=== PATIENT | female | born 1945 | race African-American/Black ===

== ENCOUNTER 2021-01-04 06:16 | Inpatient (IN) | payer OTHER ==
[2021-01-04 06:29] VITALS: BMI 25.0
[2021-01-04] MEDS ORDERED: DEXAMETHASONE SOD PHOSPHATE 10 MG/1 ML VIAL IVPUSH ONE (06:32)
[2021-01-04] MEDS ORDERED: NITROGLYCERIN SUBLINGUAL 1/150 0.4 MG TAB SL ONE (06:35)
[2021-01-04] MEDS ORDERED: ALBUTEROL SO4 2.5/IPRATROPIUM 0.5 INH SOL 3 ML VIAL.NEB. NEB SCH (06:45)
[2021-01-04 07:09] LABS: BASO % 0.7 % (0-2.0); EOS % 3.5 % (0-4.5); HEMATOCRIT 38.2 % (32.4-45.2); HEMOGLOBIN 12.8 GM/dL (10.7-15.3); LYMPH % 19.9 % (8-40); MCHC 33.6 g/dl (32.0-36.0); MEAN CELL VOLUME 89.3 fl (80-96); MONO % 7.7 % (3.8-10.2); NEUT % 68.2 % (42.8-82.8); PLATELET COUNT 339 K/MM3 (134-434); RBC 4.28 M/mm3 (3.60-5.2); RDW 15.1 % (11.6-15.6); WHITE BLOOD COUNT 10.6 K/mm3 (4.0-10.0)
[2021-01-04] MEDS ORDERED: dilTIAZem HCL 50 MG/10 ML - 10 ML VIAL IVPUSH ONE (07:21)
[2021-01-04 07:22] LABS: CHLORIDE 103 mmol/L (98-107); INR 1.37 (0.83-1.09); PROTHROMBIN TIME (PATIENT) 16.7 SEC (9.7-13.0); SODIUM 139 mmol/L (136-145)
[2021-01-04] MEDS ORDERED: dilTIAZem HCL 125 MG/25 ML - 25 ML VIAL ONE (07:22)
[2021-01-04 07:25] LABS: ACTIVATED PTT 29.9 SECONDS (25.2-36.5); ALBUMIN 3.8 g/dl (3.4-5.0); ANION GAP 6 MMOL/L (8-16); BLOOD UREA NITROGEN 18.4 mg/dL (7-18); CALCIUM 9.6 mg/dL (8.5-10.1); CO2 30 mmol/L (21-32); GLUCOSE,RANDOM 84 mg/dL (74-106); MAGNESIUM 1.8 mg/dL (1.8-2.4)
[2021-01-04 07:28] LABS: CREATININE 1.5 mg/dL (0.55-1.3); SGOT/AST 26 U/L (15-37); SGPT/ALT 27 U/L (13-61)
[2021-01-04 07:30] LABS: BILIRUBIN,TOTAL 0.4 mg/dL (0.2-1); TOT PROT 7.6 g/dl (6.4-8.2)
[2021-01-04 07:31] LABS: ALK PHOS 81 U/L (45-117)
[2021-01-04 07:33] LABS: N-TERMINAL BNP 2052.7 pg/ml (5-450)
[2021-01-04] MEDS ORDERED: FUROSEMIDE 40 MG/4 ML INJECTABLE VIAL IVPUSH ONE (08:18)
[2021-01-04] MEDS ORDERED: FUROSEMIDE 40 MG/4 ML INJECTABLE VIAL ONE (08:27)
[2021-01-04 10:30] LABS: EPI CELLS 26 /uL (0-25.1); HYALINE CASTS 2 /uL (0-3.1); PH,URINE 5.5 (5.0-8.0); URINE APPEARANCE CLEAR; URINE BACTERIA 120 /uL (0-1359); URINE BILIRUBIN NEGATIVE (NEGATIVE); URINE COLOR YELLOW; URINE GLUCOSE (UA) NEGATIVE (NEGATIVE); URINE KETONE NEGATIVE (NEGATIVE); URINE LEUK ESTERASE NEGATIVE (NEGATIVE); URINE NITRITE NEGATIVE (NEGATIVE); URINE PROTEIN 2+ (NEGATIVE); URINE RBC 6 /uL (0-23.9); URINE UROBILINOGEN 0.2 mg/dL (0.2-1.0); URINE WBC 22 /uL (0-25.8)
[2021-01-04] MEDS ORDERED: HEPARIN NA (PORCINE) 5,000 UNITS/ML 1ML VIAL SQ SCH (14:00)
[2021-01-04] MEDS: INSULIN SLIDING SCALE (NOVOLOG) 1 VIAL SQ SCH ×2 (17:23→22:56)
[2021-01-04] MEDS ORDERED: APIXABAN 5 MG TABLET PO SCH (22:41)
[2021-01-04] MEDS: MONTELUKAST NA 10 MG TABLET PO SCH (22:55)
[2021-01-04] MEDS: ATORVASTATIN CA 80 MG TABLET (FP) PO SCH (22:55)
[2021-01-04] MEDS: APIXABAN 5 MG TABLET PO SCH (22:56)
[2021-01-05] MEDS: APIXABAN 5 MG TABLET PO SCH ×3 (00:06→21:06)
[2021-01-05] MEDS: INSULIN SLIDING SCALE (NOVOLOG) 1 VIAL SQ SCH ×4 (06:47→21:15)
[2021-01-05 07:58] LABS: BASO % 0.4 % (0-2.0); EOS % 2.3 % (0-4.5); HEMATOCRIT 35.5 % (32.4-45.2); HEMOGLOBIN 11.8 GM/dL (10.7-15.3); LYMPH % 21.7 % (8-40); MCH 29.7 pg (25.7-33.7); MCHC 33.2 g/dl (32.0-36.0); MEAN CELL VOLUME 89.7 fl (80-96); MEAN PLT VOLUME 8.7 fl (7.5-11.1); NEUT % 64.6 % (42.8-82.8); PLATELET COUNT 271 K/MM3 (134-434); RBC 3.96 M/mm3 (3.60-5.2); RDW 14.9 % (11.6-15.6); WHITE BLOOD COUNT 8.3 K/mm3 (4.0-10.0)
[2021-01-05 08:25] LABS: ALBUMIN 3.6 g/dl (3.4-5.0); CALCIUM 9.6 mg/dL (8.5-10.1); MAGNESIUM 1.6 mg/dL (1.8-2.4)
[2021-01-05 08:29] LABS: BILIRUBIN,TOTAL 0.8 mg/dL (0.2-1); CREATININE 1.2 mg/dL (0.55-1.3); PHOSPHOROUS 2.6 mg/dL (2.5-4.9)
[2021-01-05 08:30] LABS: TOT PROT 6.8 g/dl (6.4-8.2)
[2021-01-05] MEDS ORDERED: PT OWN MED DRAWER 7, Y5N ONE (09:42)
[2021-01-05] MEDS ORDERED: APIXABAN 5 MG TABLET PO SCH (10:00)
[2021-01-05] MEDS ORDERED: ASPIRIN 81 MG CHEWABLE TABLETS PO SCH (10:00)
[2021-01-05] MEDS: FUROSEMIDE 40 MG/4 ML INJECTABLE VIAL IVPUSH SCH (10:15)
[2021-01-05] MEDS: TIOTROPIUM BROMIDE 2.5 MCG (SPIRIVA) RESPIMAT INHALER IH SCH (10:15)
[2021-01-05] MEDS ORDERED: INSULIN (NOVOLOG) ASPART 100 UNITS/ML 10ML VIAL ONE (17:17)
[2021-01-05] MEDS: MONTELUKAST NA 10 MG TABLET PO SCH (21:07)
[2021-01-05] MEDS: ATORVASTATIN CA 80 MG TABLET (FP) PO SCH (21:07)
[2021-01-06] MEDS: INSULIN SLIDING SCALE (NOVOLOG) 1 VIAL SQ SCH ×4 (06:04→21:37)
[2021-01-06 06:58] LABS: BASO % 0.5 % (0-2.0); EOS % 2.3 % (0-4.5); HEMATOCRIT 35.6 % (32.4-45.2); HEMOGLOBIN 11.5 GM/dL (10.7-15.3); MCH 29.1 pg (25.7-33.7); MCHC 32.3 g/dl (32.0-36.0); MEAN PLT VOLUME 8.5 fl (7.5-11.1); MONO % 11.5 % (3.8-10.2); NEUT % 66.7 % (42.8-82.8); PLATELET COUNT 265 K/MM3 (134-434); RBC 3.96 M/mm3 (3.60-5.2); WHITE BLOOD COUNT 7.3 K/mm3 (4.0-10.0)
[2021-01-06 07:53] LABS: CALCIUM 9.9 mg/dL (8.5-10.1)
[2021-01-06 07:54] LABS: BLOOD UREA NITROGEN 15.1 mg/dL (7-18)
[2021-01-06 07:55] LABS: MAGNESIUM 1.6 mg/dL (1.8-2.4)
[2021-01-06 07:57] LABS: CREATININE 1.2 mg/dL (0.55-1.3)
[2021-01-06 07:58] LABS: PHOSPHOROUS 2.5 mg/dL (2.5-4.9)
[2021-01-06] MEDS: APIXABAN 5 MG TABLET PO SCH ×2 (09:41→21:36)
[2021-01-06] MEDS: FUROSEMIDE 40 MG/4 ML INJECTABLE VIAL IVPUSH SCH (09:41)
[2021-01-06] MEDS: TIOTROPIUM BROMIDE 2.5 MCG (SPIRIVA) RESPIMAT INHALER IH SCH (09:53)
[2021-01-06] MEDS ORDERED: MAGNESIUM OXIDE 400 MG TABLET (FP) PO ONE (10:15)
[2021-01-06] MEDS: metoPROLOL SUCCINATE 25 MG TAB.SR.24H (FP) PO SCH (10:41)
[2021-01-06] MEDS ORDERED: LEVALBUTEROL HCL 0.31 MG/3 ML VIAL.NEB IH PRN (12:33)
[2021-01-06] MEDS ORDERED: FUROSEMIDE 40 MG/4 ML INJECTABLE VIAL IVPUSH ONE (16:00)
[2021-01-06] MEDS: ATORVASTATIN CA 80 MG TABLET (FP) PO SCH (21:36)
[2021-01-06] MEDS: MONTELUKAST NA 10 MG TABLET PO SCH (21:36)
[2021-01-07] MEDS: INSULIN SLIDING SCALE (NOVOLOG) 1 VIAL SQ SCH ×4 (06:07→21:32)
[2021-01-07 08:02] LABS: HEMATOCRIT 32.9 % (32.4-45.2); HEMOGLOBIN 11.2 GM/dL (10.7-15.3); MCH 30.2 pg (25.7-33.7); MCHC 34.1 g/dl (32.0-36.0); MEAN CELL VOLUME 88.6 fl (80-96); MEAN PLT VOLUME 8.7 fl (7.5-11.1); PLATELET COUNT 263 K/MM3 (134-434); RBC 3.71 M/mm3 (3.60-5.2); RDW 15.2 % (11.6-15.6)
[2021-01-07 08:21] LABS: CALCIUM 9.7 mg/dL (8.5-10.1)
[2021-01-07 08:22] LABS: BLOOD UREA NITROGEN 19.4 mg/dL (7-18); MAGNESIUM 1.7 mg/dL (1.8-2.4)
[2021-01-07 08:26] LABS: CREATININE 1.2 mg/dL (0.55-1.3); PHOSPHOROUS 2.8 mg/dL (2.5-4.9)
[2021-01-07] MEDS: metoPROLOL SUCCINATE 25 MG TAB.SR.24H (FP) PO SCH (09:22)
[2021-01-07] MEDS: APIXABAN 5 MG TABLET PO SCH ×2 (09:22→21:32)
[2021-01-07] MEDS: TIOTROPIUM BROMIDE 2.5 MCG (SPIRIVA) RESPIMAT INHALER IH SCH (09:22)
[2021-01-07] MEDS: FUROSEMIDE 40 MG/4 ML INJECTABLE VIAL IVPUSH SCH (09:22)
[2021-01-07] MEDS ORDERED: FUROSEMIDE 40 MG/4 ML INJECTABLE VIAL IVPUSH ONE (15:00)
[2021-01-07] MEDS ORDERED: INSULIN (NOVOLOG) ASPART 100 UNITS/ML 10ML VIAL ONE (20:31)
[2021-01-07] MEDS: ATORVASTATIN CA 80 MG TABLET (FP) PO SCH (21:31)
[2021-01-07] MEDS: MONTELUKAST NA 10 MG TABLET PO SCH (21:32)
[2021-01-08] MEDS: INSULIN SLIDING SCALE (NOVOLOG) 1 VIAL SQ SCH ×3 (06:34→17:08)
[2021-01-08 08:42] LABS: CALCIUM 10.1 mg/dL (8.5-10.1)
[2021-01-08 08:46] LABS: CREATININE 1.3 mg/dL (0.55-1.3)
[2021-01-08 08:48] LABS: BLOOD UREA NITROGEN 23.6 mg/dL (7-18)
[2021-01-08] MEDS ORDERED: FUROSEMIDE 40 MG TABLET (FP) PO SCH (10:00)
[2021-01-08] MEDS: metoPROLOL SUCCINATE 25 MG TAB.SR.24H (FP) PO SCH (10:40)
[2021-01-08] MEDS: TIOTROPIUM BROMIDE 2.5 MCG (SPIRIVA) RESPIMAT INHALER IH SCH (10:40)
[2021-01-08] MEDS: APIXABAN 5 MG TABLET PO SCH (10:40)
[2021-01-08 10:42] LABS: MAGNESIUM 1.6 mg/dL (1.8-2.4)
[2021-01-08] MEDS ORDERED: INSULIN (NOVOLOG) ASPART 100 UNITS/ML 10ML VIAL ONE (11:37)
[2021-01-08 18:27] VITALS: BP 139/71; PULSE 84; TEMP 97.9
== END 2021-01-08 18:42 | disposition home health service (06) | DRG 291 ==
LOC: JER 06:16 → JERBED 10:16 → J4W 11:18
PROVIDERS: ATTEND Internal Medicine
DX: I13.0 Hypertensive heart and chronic kidney disease with heart failure and stage 1 through stage 4 chronic kidney disease, or unspecified chronic kidney disease (principal); I50.33 Acute on chronic diastolic (congestive) heart failure; N17.9 Acute kidney failure, unspecified; D86.0 Sarcoidosis of lung; I48.91 Unspecified atrial fibrillation; E78.5 Hyperlipidemia, unspecified; I25.10 Atherosclerotic heart disease of native coronary artery without angina pectoris; Z95.5 Presence of coronary angioplasty implant and graft; E11.22 Type 2 diabetes mellitus with diabetic chronic kidney disease; N18.9 Chronic kidney disease, unspecified
CPT/HCPCS: 36415; 71045-TC-FY; 80048; 80053; 81003; 82550; 82553; 82962; 83036; 83735; 83880; 84100; 84436; 84443; 84484; 85025; 85027; 85610; 85730; 87086; 93005; 93010; 93306-TC; 94761; 97116-GP; 97162-GP; 99291; C9803; J1644; U0003; U0005

== ENCOUNTER 2022-01-16 20:07 | Inpatient (IN) | payer OTHER ==
[2022-01-16 20:40] VITALS: BMI 21.6
[2022-01-16 22:30] LABS: BASO % 0.8 % (0-2.0); EOS % 2.3 % (0-4.5); HEMATOCRIT 35.1 % (32.4-45.2); HEMOGLOBIN 11.6 GM/dL (10.7-15.3); LYMPH % 15.4 % (8-40); MCH 29.5 pg (25.7-33.7); MCHC 32.9 g/dl (32.0-36.0); MEAN CELL VOLUME 89.4 fl (80-96); MEAN PLT VOLUME 8.2 fl (7.5-11.1); MONO % 11.7 % (3.8-10.2); NEUT % 69.8 % (42.8-82.8); PLATELET COUNT 225 10^3/uL (134-434); RBC 3.93 M/mm3 (3.60-5.2); RDW 17.6 % (11.6-15.6); WHITE BLOOD COUNT 6.6 K/mm3 (4.0-10.0)
[2022-01-16 22:37] LABS: INR 1.95 (0.83-1.09); PROTHROMBIN TIME (PATIENT) 22.6 SEC (9.7-13.0)
[2022-01-16 22:39] LABS: ACTIVATED PTT 36.8 SECONDS (25.2-36.5)
[2022-01-16 22:55] LABS: ALBUMIN 3.6 g/dl (3.4-5.0); BLOOD UREA NITROGEN 26.4 mg/dL (7-18); CALCIUM 9.8 mg/dL (8.5-10.1)
[2022-01-16 22:57] LABS: CREATININE 1.5 mg/dL (0.55-1.3)
[2022-01-16 23:00] LABS: BILIRUBIN,TOTAL 1.1 mg/dL (0.2-1); TOT PROT 7.3 g/dl (6.4-8.2)
[2022-01-16 23:03] LABS: N-TERMINAL BNP 1558.4 pg/ml (5-450)
[2022-01-17 03:35] LABS: PH,URINE 5.5 (5.0-8.0); URINE APPEARANCE CLEAR; URINE BILIRUBIN NEGATIVE (NEGATIVE); URINE COLOR YELLOW; URINE GLUCOSE (UA) NEGATIVE (NEGATIVE); URINE KETONE NEGATIVE (NEGATIVE); URINE LEUK ESTERASE NEGATIVE (NEGATIVE); URINE NITRITE NEGATIVE (NEGATIVE); URINE PROTEIN TRACE (NEGATIVE)
[2022-01-17] MEDS ORDERED: FUROSEMIDE 40 MG/4 ML INJECTABLE VIAL ONE ×2 (04:46→13:27)
[2022-01-17] MEDS: FUROSEMIDE 40 MG/4 ML INJECTABLE VIAL IVPUSH SCH ×2 (05:08→13:35)
[2022-01-17 05:55] LABS: MAGNESIUM 1.8 mg/dL (1.8-2.4)
[2022-01-17 09:23] LABS: BASO % 0.6 % (0-2.0); EOS % 2.4 % (0-4.5); HEMATOCRIT 33.1 % (32.4-45.2); HEMOGLOBIN 10.8 GM/dL (10.7-15.3); LYMPH % 18.1 % (8-40); MCH 29.1 pg (25.7-33.7); MCHC 32.7 g/dl (32.0-36.0); MEAN CELL VOLUME 88.9 fl (80-96); NEUT % 66.9 % (42.8-82.8); PLATELET COUNT 222 10^3/uL (134-434); RBC 3.72 M/mm3 (3.60-5.2); RDW 17.7 % (11.6-15.6); WHITE BLOOD COUNT 5.6 K/mm3 (4.0-10.0)
[2022-01-17 09:51] LABS: PHOSPHOROUS 3.9 mg/dL (2.5-4.9)
[2022-01-17 09:54] LABS: ALBUMIN 3.3 g/dl (3.4-5.0); BILIRUBIN,TOTAL 0.8 mg/dL (0.2-1); BLOOD UREA NITROGEN 24.8 mg/dL (7-18); CALCIUM 9.9 mg/dL (8.5-10.1); TOT PROT 6.7 g/dl (6.4-8.2)
[2022-01-17 09:58] LABS: CREATININE 1.3 mg/dL (0.55-1.3)
[2022-01-17] MEDS ORDERED: ENOXAPARIN NA (PORCINE) 40 MG/0.4 ML DISP.SYRIN SQ SCH (10:00)
[2022-01-17] MEDS ORDERED: APIXABAN 5 MG TABLET ONE (13:26)
[2022-01-17] MEDS ORDERED: PANTOPRAZOLE 40 MG TABLET PO ONE (13:26)
[2022-01-17] MEDS ORDERED: metoPROLOL SUCCINATE 25 MG TAB.SR.24H (FP) PO ONE (13:28)
[2022-01-17] MEDS: metoPROLOL SUCCINATE 25 MG TAB.SR.24H (FP) PO SCH (13:35)
[2022-01-17] MEDS: TIOTROPIUM BROMIDE 2.5 MCG (SPIRIVA) RESPIMAT INHALER IH SCH (13:35)
[2022-01-17] MEDS: APIXABAN 5 MG TABLET PO SCH ×2 (13:35→21:16)
[2022-01-17] MEDS: PANTOPRAZOLE 40 MG TABLET PO SCH (13:35)
[2022-01-17] MEDS ORDERED: PATIENT'S OWN MEDICATION (NON-FORMULARY) (Brinzolamide/Brimonidine Tart [Simbrinza 1%-0.2% OU SCH (14:00)
[2022-01-17] MEDS: BRIMONIDINE TARTRATE 0.2% OPHTHALMIC 5 ML BOTTLE OU SCH ×3 (15:00→21:20)
[2022-01-17] MEDS: DORZOLAMIDE 2% HCL OPHTHALMIC SOLUTION 10 ML BOTTLE OU SCH ×2 (15:00→21:17)
[2022-01-17] MEDS: LIPASE/PROTEASE/AMYLASE 36,000 UNIT CAPSULE PO SCH (17:52)
[2022-01-17] MEDS: MONTELUKAST NA 10 MG TABLET PO SCH (21:16)
[2022-01-17] MEDS: ATORVASTATIN CA 80 MG TABLET (FP) PO SCH (21:16)
[2022-01-17] MEDS: MIRTAZAPINE 15 MG TABLET (FP) PO SCH (21:16)
[2022-01-18] MEDS: BRIMONIDINE TARTRATE 0.2% OPHTHALMIC 5 ML BOTTLE OU SCH ×3 (05:09→21:19)
[2022-01-18] MEDS: DORZOLAMIDE 2% HCL OPHTHALMIC SOLUTION 10 ML BOTTLE OU SCH ×3 (05:09→21:08)
[2022-01-18] MEDS: LIPASE/PROTEASE/AMYLASE 36,000 UNIT CAPSULE PO SCH ×3 (08:09→16:53)
[2022-01-18] MEDS: APIXABAN 5 MG TABLET PO SCH ×2 (09:59→21:04)
[2022-01-18] MEDS: FUROSEMIDE 40 MG/4 ML INJECTABLE VIAL IVPUSH SCH (09:59)
[2022-01-18] MEDS: PANTOPRAZOLE 40 MG TABLET PO SCH (09:59)
[2022-01-18] MEDS: metoPROLOL SUCCINATE 25 MG TAB.SR.24H (FP) PO SCH (09:59)
[2022-01-18 10:59] LABS: HEMATOCRIT 35.7 % (32.4-45.2); HEMOGLOBIN 11.6 GM/dL (10.7-15.3); MCH 29.2 pg (25.7-33.7); MCHC 32.6 g/dl (32.0-36.0); MEAN CELL VOLUME 89.6 fl (80-96); MEAN PLT VOLUME 9.3 fl (7.5-11.1); PLATELET COUNT 224 10^3/uL (134-434); RBC 3.98 M/mm3 (3.60-5.2); RDW 17.9 % (11.6-15.6); WHITE BLOOD COUNT 5.3 K/mm3 (4.0-10.0)
[2022-01-18 11:00] LABS: INR 2.07 (0.83-1.09)
[2022-01-18] MEDS: INSULIN SLIDING SCALE (NOVOLOG) 1 VIAL SQ SCH ×3 (11:17→21:22)
[2022-01-18 11:18] LABS: CALCIUM 10.3 mg/dL (8.5-10.1)
[2022-01-18 11:19] LABS: ALBUMIN 3.6 g/dl (3.4-5.0)
[2022-01-18 11:22] LABS: CREATININE 1.2 mg/dL (0.55-1.3); PHOSPHOROUS 2.6 mg/dL (2.5-4.9)
[2022-01-18 11:23] LABS: BILIRUBIN,TOTAL 1.5 mg/dL (0.2-1); TOT PROT 7.3 g/dl (6.4-8.2)
[2022-01-18] MEDS: TIOTROPIUM BROMIDE 2.5 MCG (SPIRIVA) RESPIMAT INHALER IH SCH ×2 (13:04→13:06)
[2022-01-18] MEDS: MONTELUKAST NA 10 MG TABLET PO SCH (21:04)
[2022-01-18] MEDS: MIRTAZAPINE 15 MG TABLET (FP) PO SCH (21:04)
[2022-01-18] MEDS: ATORVASTATIN CA 80 MG TABLET (FP) PO SCH (21:04)
[2022-01-19] MEDS: DORZOLAMIDE 2% HCL OPHTHALMIC SOLUTION 10 ML BOTTLE OU SCH ×3 (06:06→21:21)
[2022-01-19] MEDS: BRIMONIDINE TARTRATE 0.2% OPHTHALMIC 5 ML BOTTLE OU SCH ×3 (06:06→21:21)
[2022-01-19] MEDS: INSULIN SLIDING SCALE (NOVOLOG) 1 VIAL SQ SCH ×4 (06:10→21:14)
[2022-01-19] MEDS ORDERED: INSULIN (NOVOLOG) ASPART 100 UNITS/ML 10ML VIAL ONE ×3 (07:03→20:40)
[2022-01-19] MEDS ORDERED: INSULIN (LEVEMIR) 100 UNITS/ML UNITS SQ ONE (07:03)
[2022-01-19 08:52] LABS: HEMATOCRIT 34.1 % (32.4-45.2); HEMOGLOBIN 11.4 GM/dL (10.7-15.3); MCH 29.6 pg (25.7-33.7); MCHC 33.5 g/dl (32.0-36.0); MEAN CELL VOLUME 88.4 fl (80-96); MEAN PLT VOLUME 8.7 fl (7.5-11.1); PLATELET COUNT 224 10^3/uL (134-434); RBC 3.86 M/mm3 (3.60-5.2); RDW 17.6 % (11.6-15.6); WHITE BLOOD COUNT 5.6 K/mm3 (4.0-10.0)
[2022-01-19] MEDS: LIPASE/PROTEASE/AMYLASE 36,000 UNIT CAPSULE PO SCH ×3 (08:59→17:09)
[2022-01-19 09:16] LABS: CALCIUM 10.2 mg/dL (8.5-10.1)
[2022-01-19 09:17] LABS: ALBUMIN 3.2 g/dl (3.4-5.0); BLOOD UREA NITROGEN 20.2 mg/dL (7-18)
[2022-01-19 09:18] LABS: BILIRUBIN,TOTAL 1.1 mg/dL (0.2-1); PHOSPHOROUS 3.1 mg/dL (2.5-4.9)
[2022-01-19 09:19] LABS: MAGNESIUM 1.9 mg/dL (1.8-2.4); TOT PROT 6.9 g/dl (6.4-8.2)
[2022-01-19 09:21] LABS: CREATININE 1.2 mg/dL (0.55-1.3)
[2022-01-19] MEDS: metoPROLOL SUCCINATE 25 MG TAB.SR.24H (FP) PO SCH (09:40)
[2022-01-19] MEDS: PANTOPRAZOLE 40 MG TABLET PO SCH (09:40)
[2022-01-19] MEDS: APIXABAN 5 MG TABLET PO SCH ×2 (09:40→21:11)
[2022-01-19] MEDS: TIOTROPIUM BROMIDE 2.5 MCG (SPIRIVA) RESPIMAT INHALER IH SCH (09:40)
[2022-01-19] MEDS: FUROSEMIDE 40 MG/4 ML INJECTABLE VIAL IVPUSH SCH (09:40)
[2022-01-19] MEDS: ATORVASTATIN CA 80 MG TABLET (FP) PO SCH (21:11)
[2022-01-19] MEDS: MIRTAZAPINE 15 MG TABLET (FP) PO SCH (21:12)
[2022-01-19] MEDS: MONTELUKAST NA 10 MG TABLET PO SCH (21:12)
[2022-01-20] MEDS: BRIMONIDINE TARTRATE 0.2% OPHTHALMIC 5 ML BOTTLE OU SCH ×3 (05:52→21:31)
[2022-01-20] MEDS: DORZOLAMIDE 2% HCL OPHTHALMIC SOLUTION 10 ML BOTTLE OU SCH ×3 (05:52→21:32)
[2022-01-20] MEDS: INSULIN SLIDING SCALE (NOVOLOG) 1 VIAL SQ SCH ×4 (06:25→21:37)
[2022-01-20] MEDS ORDERED: INSULIN (NOVOLOG) ASPART 100 UNITS/ML 10ML VIAL ONE ×2 (06:33→21:33)
[2022-01-20] MEDS: APIXABAN 5 MG TABLET PO SCH ×2 (09:21→21:31)
[2022-01-20] MEDS: PANTOPRAZOLE 40 MG TABLET PO SCH (09:21)
[2022-01-20] MEDS: metoPROLOL SUCCINATE 25 MG TAB.SR.24H (FP) PO SCH (09:21)
[2022-01-20] MEDS: LIPASE/PROTEASE/AMYLASE 36,000 UNIT CAPSULE PO SCH ×3 (09:21→17:05)
[2022-01-20] MEDS: FUROSEMIDE 40 MG/4 ML INJECTABLE VIAL IVPUSH SCH (09:21)
[2022-01-20] MEDS: TIOTROPIUM BROMIDE 2.5 MCG (SPIRIVA) RESPIMAT INHALER IH SCH (09:30)
[2022-01-20 09:36] LABS: BLOOD UREA NITROGEN 21.8 mg/dL (7-18); CALCIUM 10.1 mg/dL (8.5-10.1); MAGNESIUM 1.9 mg/dL (1.8-2.4)
[2022-01-20 09:39] LABS: CREATININE 1.1 mg/dL (0.55-1.3)
[2022-01-20 09:44] LABS: N-TERMINAL BNP 1660.8 pg/ml (5-450)
[2022-01-20] MEDS ORDERED: POTASSIUM CHLORIDE TABS 20 MEQ TABLET.ER (FP) PO ONE ×2 (17:41→21:30)
[2022-01-20 18:12] LABS: PHOSPHOROUS 2.9 mg/dL (2.5-4.9)
[2022-01-20] MEDS: MIRTAZAPINE 15 MG TABLET (FP) PO SCH (21:31)
[2022-01-20] MEDS: ATORVASTATIN CA 80 MG TABLET (FP) PO SCH (21:31)
[2022-01-20] MEDS: MONTELUKAST NA 10 MG TABLET PO SCH (21:31)
[2022-01-21] MEDS: BRIMONIDINE TARTRATE 0.2% OPHTHALMIC 5 ML BOTTLE OU SCH ×3 (05:24→22:03)
[2022-01-21] MEDS: DORZOLAMIDE 2% HCL OPHTHALMIC SOLUTION 10 ML BOTTLE OU SCH ×3 (05:24→22:03)
[2022-01-21] MEDS: INSULIN SLIDING SCALE (NOVOLOG) 1 VIAL SQ SCH ×4 (06:01→22:08)
[2022-01-21] MEDS: LIPASE/PROTEASE/AMYLASE 36,000 UNIT CAPSULE PO SCH ×3 (07:59→16:55)
[2022-01-21] MEDS: FUROSEMIDE 40 MG/4 ML INJECTABLE VIAL IVPUSH SCH (10:07)
[2022-01-21] MEDS: POLYETHYLENE GLYCOL (HEALTHYLAX) 3350 17 GM PACKET PO SCH (10:08)
[2022-01-21] MEDS: APIXABAN 5 MG TABLET PO SCH ×2 (10:08→22:03)
[2022-01-21] MEDS: metoPROLOL SUCCINATE 25 MG TAB.SR.24H (FP) PO SCH (10:08)
[2022-01-21] MEDS: PANTOPRAZOLE 40 MG TABLET PO SCH (10:08)
[2022-01-21] MEDS: TIOTROPIUM BROMIDE 2.5 MCG (SPIRIVA) RESPIMAT INHALER IH SCH (11:33)
[2022-01-21 12:09] LABS: HEMATOCRIT 36.2 % (32.4-45.2); HEMOGLOBIN 11.9 GM/dL (10.7-15.3); MCH 29.3 pg (25.7-33.7); MEAN CELL VOLUME 88.8 fl (80-96); PLATELET COUNT 233 10^3/uL (134-434); RBC 4.07 M/mm3 (3.60-5.2); RDW 17.5 % (11.6-15.6); WHITE BLOOD COUNT 5.1 K/mm3 (4.0-10.0)
[2022-01-21 12:23] LABS: CALCIUM 10.2 mg/dL (8.5-10.1)
[2022-01-21 12:24] LABS: ALBUMIN 3.4 g/dl (3.4-5.0)
[2022-01-21 12:27] LABS: CREATININE 1.1 mg/dL (0.55-1.3); PHOSPHOROUS 2.8 mg/dL (2.5-4.9)
[2022-01-21 12:28] LABS: BILIRUBIN,TOTAL 1.2 mg/dL (0.2-1); TOT PROT 7.2 g/dl (6.4-8.2)
[2022-01-21] MEDS: MIRTAZAPINE 15 MG TABLET (FP) PO SCH (22:03)
[2022-01-21] MEDS: MONTELUKAST NA 10 MG TABLET PO SCH (22:03)
[2022-01-21] MEDS: ATORVASTATIN CA 80 MG TABLET (FP) PO SCH (22:03)
[2022-01-22] MEDS: BRIMONIDINE TARTRATE 0.2% OPHTHALMIC 5 ML BOTTLE OU SCH ×2 (06:08→13:29)
[2022-01-22] MEDS: DORZOLAMIDE 2% HCL OPHTHALMIC SOLUTION 10 ML BOTTLE OU SCH ×2 (06:08→13:30)
[2022-01-22] MEDS: INSULIN SLIDING SCALE (NOVOLOG) 1 VIAL SQ SCH ×3 (06:11→16:41)
[2022-01-22] MEDS: LIPASE/PROTEASE/AMYLASE 36,000 UNIT CAPSULE PO SCH ×2 (08:24→11:50)
[2022-01-22] MEDS: PANTOPRAZOLE 40 MG TABLET PO SCH (09:16)
[2022-01-22] MEDS: APIXABAN 5 MG TABLET PO SCH (09:16)
[2022-01-22] MEDS: metoPROLOL SUCCINATE 25 MG TAB.SR.24H (FP) PO SCH (09:16)
[2022-01-22] MEDS: TIOTROPIUM BROMIDE 2.5 MCG (SPIRIVA) RESPIMAT INHALER IH SCH (09:17)
[2022-01-22] MEDS: POLYETHYLENE GLYCOL (HEALTHYLAX) 3350 17 GM PACKET PO SCH (09:17)
[2022-01-22] MEDS ORDERED: TORSEMIDE 20 MG TABLET (FP) PO SCH (10:00)
[2022-01-22 11:12] LABS: CALCIUM 10.3 mg/dL (8.5-10.1)
[2022-01-22 11:13] LABS: BLOOD UREA NITROGEN 20.4 mg/dL (7-18)
[2022-01-22 11:16] LABS: PHOSPHOROUS 3.1 mg/dL (2.5-4.9)
[2022-01-22 15:21] VITALS: BP 131/73; PULSE 70; TEMP 97.5
== END 2022-01-22 17:08 | disposition home or self-care (01) | DRG 291 ==
LOC: JER 20:07 → JERBED 01-17 01:21 → J6S 01-17 14:10
PROVIDERS: ADMIT Internal Medicine; ATTEND Internal Medicine
DX: I13.0 Hypertensive heart and chronic kidney disease with heart failure and stage 1 through stage 4 chronic kidney disease, or unspecified chronic kidney disease (principal); I50.33 Acute on chronic diastolic (congestive) heart failure; N17.9 Acute kidney failure, unspecified; I48.91 Unspecified atrial fibrillation; E78.5 Hyperlipidemia, unspecified; D86.0 Sarcoidosis of lung; I25.10 Atherosclerotic heart disease of native coronary artery without angina pectoris; N18.9 Chronic kidney disease, unspecified; Z98.61 Coronary angioplasty status
CPT/HCPCS: 36415; 71045-TC-FY; 76775-TC; 80048; 80053; 81003; 82550; 82962; 83036; 83735; 83880; 84100; 84484; 85025; 85027; 85610; 85730; 93005; 93010; 93306-TC; 93970-TC; 94761; 97116-GP; 97161-GP; 99285-25; C9803-CS; U0003; U0005

== ENCOUNTER 2022-04-30 10:27 | Inpatient (IN) | payer OTHER ==
[2022-04-30] MEDS ORDERED: DEXTROSE 50%-WATER - 25 GM/50 ML VIAL IVPUSH ONE (10:57)
[2022-04-30] MEDS ORDERED: DEXTROSE 50%-WATER 25 GM/50 ML DISP.SYRIN ONE ×2 (10:58→11:00)
[2022-04-30 12:25] LABS: BASO % 0.1 % (0-2.0); EOS % 0.1 % (0-4.5); HEMATOCRIT 30.3 % (32.4-45.2); HEMOGLOBIN 9.8 GM/dL (10.7-15.3); LYMPH % 11.7 % (8-40); MCH 25.8 pg (25.7-33.7); MCHC 32.3 g/dl (32.0-36.0); MEAN CELL VOLUME 79.9 fl (80-96); MEAN PLT VOLUME 8.4 fl (7.5-11.1); MONO % 8.2 % (3.8-10.2); NEUT % 79.9 % (42.8-82.8); PLATELET COUNT 307 10^3/uL (134-434); RBC 3.79 M/mm3 (3.60-5.2); RDW 17.7 % (11.6-15.6); WHITE BLOOD COUNT 7.6 K/mm3 (4.0-10.0)
[2022-04-30 12:56] LABS: CALCIUM 10.6 mg/dL (8.5-10.1)
[2022-04-30 12:58] LABS: ALBUMIN 3.7 g/dl (3.4-5.0)
[2022-04-30 12:59] LABS: CREATININE 1.9 mg/dL (0.55-1.3)
[2022-04-30 13:01] LABS: BILIRUBIN,TOTAL 1.1 mg/dL (0.2-1); TOT PROT 7.9 g/dl (6.4-8.2)
[2022-04-30 15:33] LABS: EPI CELLS 22 /uL (0-25.1); HYALINE CASTS 1 /uL (0-3.1); PH,URINE 5.5 (5.0-8.0); URINE APPEARANCE CLEAR; URINE BACTERIA 102 /uL (0-1359); URINE BILIRUBIN NEGATIVE (NEGATIVE); URINE COLOR YELLOW; URINE GLUCOSE (UA) NEGATIVE (NEGATIVE); URINE KETONE NEGATIVE (NEGATIVE); URINE LEUK ESTERASE NEGATIVE (NEGATIVE); URINE NITRITE NEGATIVE (NEGATIVE); URINE PROTEIN 1+ (NEGATIVE); URINE RBC 2 /uL (0-23.9); URINE WBC 16 /uL (0-25.8)
[2022-04-30] MEDS ORDERED: ACETAMINOPHEN 325 MG TABLET (FP) PO PRN (18:37)
[2022-04-30] MEDS ORDERED: LACTATED RINGERS SOLUTION 1,000 ML/1,000 ML INFUS.BAG IV SCH (19:15)
[2022-04-30] MEDS ORDERED: MONTELUKAST NA 10 MG TABLET PO SCH (22:00)
[2022-04-30] MEDS ORDERED: ATORVASTATIN CA 80 MG TABLET (FP) PO SCH (22:00)
[2022-04-30] MEDS ORDERED: HEPARIN NA (PORCINE) 5,000 UNITS/ML 1ML VIAL SQ SCH (22:00)
[2022-05-01] MEDS: APIXABAN 5 MG TABLET PO SCH ×3 (00:25→21:58)
[2022-05-01] MEDS: INSULIN SLIDING SCALE (NOVOLOG) 1 VIAL SQ SCH ×5 (00:32→21:58)
[2022-05-01] MEDS ORDERED: ENALAPRIL MALEATE 10 MG TABLET PO SCH (10:00)
[2022-05-01] MEDS ORDERED: TORSEMIDE 20 MG TABLET (FP) PO SCH (10:00)
[2022-05-01] MEDS: metoPROLOL SUCCINATE 25 MG TAB.SR.24H (FP) PO SCH ×2 (10:15→10:33)
[2022-05-01 11:36] LABS: HEMATOCRIT 27.9 % (32.4-45.2); HEMOGLOBIN 8.9 GM/dL (10.7-15.3); MCH 25.6 pg (25.7-33.7); MEAN PLT VOLUME 8.6 fl (7.5-11.1); PLATELET COUNT 257 10^3/uL (134-434); RBC 3.49 M/mm3 (3.60-5.2); RDW 17.6 % (11.6-15.6); WHITE BLOOD COUNT 6.9 K/mm3 (4.0-10.0)
[2022-05-01 12:09] LABS: BLOOD UREA NITROGEN 30.3 mg/dL (7-18); CALCIUM 10.2 mg/dL (8.5-10.1)
[2022-05-01 12:12] LABS: CREATININE 1.7 mg/dL (0.55-1.3)
[2022-05-01] MEDS ORDERED: ACETAMINOPHEN 325 MG TABLET (FP) PO PRN (14:57)
[2022-05-01] MEDS: ATORVASTATIN CA 80 MG TABLET (FP) PO SCH (21:58)
[2022-05-01] MEDS: MONTELUKAST NA 10 MG TABLET PO SCH (21:58)
[2022-05-02] MEDS: INSULIN SLIDING SCALE (NOVOLOG) 1 VIAL SQ SCH ×4 (06:16→22:01)
[2022-05-02] MEDS ORDERED: TORSEMIDE 20 MG TABLET (FP) PO SCH (10:00)
[2022-05-02] MEDS ORDERED: ENALAPRIL MALEATE 10 MG TABLET PO SCH ×2 (10:00→12:09)
[2022-05-02] MEDS: APIXABAN 5 MG TABLET PO SCH ×2 (11:10→22:01)
[2022-05-02 14:45] LABS: BASO % 0.8 % (0-2.0); EOS % 0.6 % (0-4.5); HEMATOCRIT 27.7 % (32.4-45.2); HEMOGLOBIN 9.1 GM/dL (10.7-15.3); LYMPH % 13.5 % (8-40); MCHC 32.8 g/dl (32.0-36.0); MEAN CELL VOLUME 79.1 fl (80-96); MEAN PLT VOLUME 8.4 fl (7.5-11.1); MONO % 15.3 % (3.8-10.2); NEUT % 69.8 % (42.8-82.8); PLATELET COUNT 255 10^3/uL (134-434); RDW 17.6 % (11.6-15.6); WHITE BLOOD COUNT 6.7 K/mm3 (4.0-10.0)
[2022-05-02 15:10] LABS: BLOOD UREA NITROGEN 28.8 mg/dL (7-18); CALCIUM 10.5 mg/dL (8.5-10.1); MAGNESIUM 2.1 mg/dL (1.8-2.4)
[2022-05-02 15:11] LABS: ALBUMIN 3.2 g/dl (3.4-5.0)
[2022-05-02 15:13] LABS: CREATININE 1.7 mg/dL (0.55-1.3); PHOSPHOROUS 2.7 mg/dL (2.5-4.9)
[2022-05-02 15:15] LABS: BILIRUBIN,TOTAL 1.1 mg/dL (0.2-1); TOT PROT 6.8 g/dl (6.4-8.2)
[2022-05-02] MEDS ORDERED: FLUTICASONE/UMECLIDIN/VILANTER(200-62.5-25 TRELEGY ELLIPTA) INAHLER IH SCH (21:30)
[2022-05-02] MEDS ORDERED: BUDESONIDE/FORMETEROL FUMARATE 160/4.5 mcg INHALER IH ONE (21:35)
[2022-05-02] MEDS ORDERED: BUDESONIDE/FORMETEROL FUMARATE 160/4.5 mcg INHALER IH SCH (22:00)
[2022-05-02] MEDS: ATORVASTATIN CA 80 MG TABLET (FP) PO SCH (22:01)
[2022-05-02] MEDS: MONTELUKAST NA 10 MG TABLET PO SCH (22:01)
[2022-05-03] MEDS: INSULIN SLIDING SCALE (NOVOLOG) 1 VIAL SQ SCH ×4 (06:31→22:04)
[2022-05-03 08:13] LABS: EPI CELLS 11 /uL (0-25.1); HYALINE CASTS 2 /uL (0-3.1); URINE APPEARANCE CLEAR; URINE BACTERIA 6 /uL (0-1359); URINE BILIRUBIN NEGATIVE (NEGATIVE); URINE COLOR YELLOW; URINE GLUCOSE (UA) NEGATIVE (NEGATIVE); URINE KETONE NEGATIVE (NEGATIVE); URINE LEUK ESTERASE NEGATIVE (NEGATIVE); URINE NITRITE NEGATIVE (NEGATIVE); URINE PROTEIN 1+ (NEGATIVE); URINE RBC 4 /uL (0-23.9); URINE WBC 6 /uL (0-25.8)
[2022-05-03 08:36] LABS: BASO % 0.3 % (0-2.0); HEMATOCRIT 31.2 % (32.4-45.2); HEMOGLOBIN 9.7 GM/dL (10.7-15.3); LYMPH % 23.5 % (8-40); MCH 24.7 pg (25.7-33.7); MEAN CELL VOLUME 79.7 fl (80-96); MEAN PLT VOLUME 9.1 fl (7.5-11.1); MONO % 12.5 % (3.8-10.2); NEUT % 62.7 % (42.8-82.8); PLATELET COUNT 290 10^3/uL (134-434); RBC 3.91 M/mm3 (3.60-5.2); RDW 17.6 % (11.6-15.6); WHITE BLOOD COUNT 7.8 K/mm3 (4.0-10.0)
[2022-05-03 09:01] LABS: BLOOD UREA NITROGEN 34.2 mg/dL (7-18); CALCIUM 10.6 mg/dL (8.5-10.1); MAGNESIUM 2.1 mg/dL (1.8-2.4)
[2022-05-03 09:04] LABS: CREATININE 1.9 mg/dL (0.55-1.3); PHOSPHOROUS 2.9 mg/dL (2.5-4.9)
[2022-05-03 09:06] LABS: BILIRUBIN,TOTAL 1.1 mg/dL (0.2-1); TOT PROT 7.3 g/dl (6.4-8.2)
[2022-05-03 09:09] LABS: ALBUMIN 3.8 g/dl (3.4-5.0)
[2022-05-03] MEDS: APIXABAN 5 MG TABLET PO SCH ×2 (09:17→22:05)
[2022-05-03] MEDS ORDERED: MAGNESIUM SULF 50% (8.12 MEQ/2 ML-1 GM VIAL) IVPB ONE (10:36)
[2022-05-03] MEDS ORDERED: POTASSIUM CHLORIDE ORAL LIQUID 20 MEQ/15 ML PO ONE (10:36)
[2022-05-03 11:58] LABS: BILIRUBIN,DIRECT 0.6 mg/dL (0.0-0.2)
[2022-05-03] MEDS ORDERED: SODIUM CHLORIDE 1,000 ML IV SCH (16:00)
[2022-05-03 16:19] LABS: ARTERIAL BLD GAS O2 SATURATION 87.3 % (95-98); ARTERIAL BLOOD GAS BASE EXCESS 8.4 mmol/L (-2-2); ARTERIAL BLOOD GAS PO2 49.3 mmHg (80-100); ARTERIAL BLOOD GAS pH 7.482 (7.350-7.450)
[2022-05-03 16:21] LABS: ALLENS TEST POSITIVE
[2022-05-03] MEDS: MONTELUKAST NA 10 MG TABLET PO SCH (22:05)
[2022-05-03] MEDS: ATORVASTATIN CA 80 MG TABLET (FP) PO SCH (22:05)
[2022-05-04] MEDS ORDERED: PROCHLORPERAZINE INJECTION 10 MG/2 ML VIAL IVPB PRN (04:02)
[2022-05-04] MEDS: INSULIN SLIDING SCALE (NOVOLOG) 1 VIAL SQ SCH ×4 (06:14→21:53)
[2022-05-04 07:50] LABS: HEMATOCRIT 28.6 % (32.4-45.2); MCH 25.1 pg (25.7-33.7); MCHC 31.5 g/dl (32.0-36.0); MEAN CELL VOLUME 79.8 fl (80-96); MEAN PLT VOLUME 9.3 fl (7.5-11.1); PLATELET COUNT 246 10^3/uL (134-434); RBC 3.59 M/mm3 (3.60-5.2); RDW 17.9 % (11.6-15.6); WHITE BLOOD COUNT 7.8 K/mm3 (4.0-10.0)
[2022-05-04 08:15] LABS: BLOOD UREA NITROGEN 42.8 mg/dL (7-18)
[2022-05-04 08:16] LABS: ALBUMIN 3.2 g/dl (3.4-5.0); BILIRUBIN,TOTAL 1.2 mg/dL (0.2-1); CALCIUM 10.3 mg/dL (8.5-10.1); MAGNESIUM 2.5 mg/dL (1.8-2.4); TOT PROT 6.7 g/dl (6.4-8.2)
[2022-05-04 08:18] LABS: PHOSPHOROUS 3.3 mg/dL (2.5-4.9)
[2022-05-04] MEDS: APIXABAN 5 MG TABLET PO SCH ×2 (09:23→21:39)
[2022-05-04] MEDS ORDERED: FLUTICASONE/UMECLIDIN/VILANTER(200-62.5-25 TRELEGY ELLIPTA) INAHLER IH SCH (14:00)
[2022-05-04] MEDS: TIOTROPIUM BROMIDE 2.5 MCG (SPIRIVA) RESPIMAT INHALER IH SCH (14:08)
[2022-05-04] MEDS: methylPREDNISolone NA SUCC 40 MG/1 ML VIAL IVPUSH SCH ×2 (16:45→21:40)
[2022-05-04] MEDS: MONTELUKAST NA 10 MG TABLET PO SCH (21:40)
[2022-05-04] MEDS: ATORVASTATIN CA 80 MG TABLET (FP) PO SCH (21:40)
[2022-05-04] MEDS: BUDESONIDE/FORMETEROL FUMARATE 160/4.5 mcg INHALER IH SCH (21:53)
[2022-05-05] MEDS: INSULIN SLIDING SCALE (NOVOLOG) 1 VIAL SQ SCH ×4 (06:04→21:47)
[2022-05-05] MEDS: APIXABAN 5 MG TABLET PO SCH ×2 (10:15→21:38)
[2022-05-05] MEDS: BUDESONIDE/FORMETEROL FUMARATE 160/4.5 mcg INHALER IH SCH ×2 (10:15→21:39)
[2022-05-05] MEDS: TIOTROPIUM BROMIDE 2.5 MCG (SPIRIVA) RESPIMAT INHALER IH SCH (10:15)
[2022-05-05] MEDS: methylPREDNISolone NA SUCC 40 MG/1 ML VIAL IVPUSH SCH ×2 (10:15→21:38)
[2022-05-05] MEDS: ATORVASTATIN CA 80 MG TABLET (FP) PO SCH (21:38)
[2022-05-05] MEDS: MONTELUKAST NA 10 MG TABLET PO SCH (21:38)
[2022-05-06] MEDS: INSULIN SLIDING SCALE (NOVOLOG) 1 VIAL SQ SCH ×5 (06:45→23:11)
[2022-05-06 08:11] LABS: CALCIUM 10.4 mg/dL (8.5-10.1)
[2022-05-06 08:13] LABS: CREATININE 3.1 mg/dL (0.55-1.3)
[2022-05-06] MEDS: APIXABAN 5 MG TABLET PO SCH ×2 (09:32→22:55)
[2022-05-06] MEDS: methylPREDNISolone NA SUCC 40 MG/1 ML VIAL IVPUSH SCH ×2 (09:33→22:56)
[2022-05-06] MEDS: BUDESONIDE/FORMETEROL FUMARATE 160/4.5 mcg INHALER IH SCH ×2 (09:35→23:05)
[2022-05-06] MEDS: TIOTROPIUM BROMIDE 2.5 MCG (SPIRIVA) RESPIMAT INHALER IH SCH (09:36)
[2022-05-06] MEDS: INSULIN (LEVEMIR) 100 UNITS/ML UNITS SQ SCH ×2 (09:44→22:55)
[2022-05-06] MEDS ORDERED: INSULIN (LEVEMIR) 100 UNITS/ML UNITS SQ SCH (10:00)
[2022-05-06] MEDS: SODIUM CHLORIDE 0.45% 1,000 ML IV SCH (14:24)
[2022-05-06] MEDS ORDERED: ACETAMINOPHEN 325 MG TABLET (FP) PO PRN (20:09)
[2022-05-06] MEDS ORDERED: INSULIN (LEVEMIR) 100 UNITS/ML UNITS SQ ONE (20:52)
[2022-05-06] MEDS: ATORVASTATIN CA 80 MG TABLET (FP) PO SCH (22:55)
[2022-05-06] MEDS: MONTELUKAST NA 10 MG TABLET PO SCH (22:56)
[2022-05-07] MEDS: SODIUM CHLORIDE 0.45% 1,000 ML IV SCH (06:00)
[2022-05-07] MEDS: INSULIN (LEVEMIR) 100 UNITS/ML UNITS SQ SCH ×2 (06:01→21:36)
[2022-05-07] MEDS: INSULIN SLIDING SCALE (NOVOLOG) 1 VIAL SQ SCH ×4 (06:12→21:36)
[2022-05-07 09:56] LABS: HEMATOCRIT 29.9 % (32.4-45.2); HEMOGLOBIN 9.4 GM/dL (10.7-15.3); MCH 25.1 pg (25.7-33.7); MCHC 31.6 g/dl (32.0-36.0); MEAN CELL VOLUME 79.6 fl (80-96); MEAN PLT VOLUME 9.6 fl (7.5-11.1); PLATELET COUNT 216 10^3/uL (134-434); RBC 3.75 M/mm3 (3.60-5.2); RDW 18.2 % (11.6-15.6); WHITE BLOOD COUNT 12.5 K/mm3 (4.0-10.0)
[2022-05-07] MEDS: methylPREDNISolone NA SUCC 40 MG/1 ML VIAL IVPUSH SCH ×2 (10:18→21:28)
[2022-05-07] MEDS: BUDESONIDE/FORMETEROL FUMARATE 160/4.5 mcg INHALER IH SCH ×2 (10:21→21:37)
[2022-05-07] MEDS: APIXABAN 5 MG TABLET PO SCH ×2 (10:21→21:29)
[2022-05-07 10:38] LABS: CALCIUM 9.8 mg/dL (8.5-10.1)
[2022-05-07 10:39] LABS: ALBUMIN 3.2 g/dl (3.4-5.0); MAGNESIUM 3.1 mg/dL (1.8-2.4)
[2022-05-07 10:42] LABS: BILIRUBIN,TOTAL 1.1 mg/dL (0.2-1); CREATININE 3.4 mg/dL (0.55-1.3); PHOSPHOROUS 5.6 mg/dL (2.5-4.9); TOT PROT 6.9 g/dl (6.4-8.2)
[2022-05-07] MEDS: ATORVASTATIN CA 80 MG TABLET (FP) PO SCH (21:29)
[2022-05-07] MEDS: MONTELUKAST NA 10 MG TABLET PO SCH (21:30)
[2022-05-08] MEDS: INSULIN (LEVEMIR) 100 UNITS/ML UNITS SQ SCH ×2 (07:06→21:24)
[2022-05-08] MEDS: INSULIN SLIDING SCALE (NOVOLOG) 1 VIAL SQ SCH ×4 (07:07→21:27)
[2022-05-08 09:10] LABS: HEMATOCRIT 29.5 % (32.4-45.2); HEMOGLOBIN 9.6 GM/dL (10.7-15.3); MCH 25.7 pg (25.7-33.7); MCHC 32.5 g/dl (32.0-36.0); MEAN CELL VOLUME 78.9 fl (80-96); MEAN PLT VOLUME 9.4 fl (7.5-11.1); PLATELET COUNT 212 10^3/uL (134-434); RBC 3.74 M/mm3 (3.60-5.2); RDW 17.7 % (11.6-15.6); WHITE BLOOD COUNT 10.1 K/mm3 (4.0-10.0)
[2022-05-08 09:35] LABS: ALBUMIN 3.3 g/dl (3.4-5.0); PHOSPHOROUS 5.8 mg/dL (2.5-4.9)
[2022-05-08 09:36] LABS: BILIRUBIN,TOTAL 1.2 mg/dL (0.2-1); TOT PROT 6.8 g/dl (6.4-8.2)
[2022-05-08 09:37] LABS: CREATININE 3.4 mg/dL (0.55-1.3)
[2022-05-08 09:38] LABS: BLOOD UREA NITROGEN 101.1 mg/dL (7-18); CALCIUM 9.4 mg/dL (8.5-10.1)
[2022-05-08] MEDS: APIXABAN 5 MG TABLET PO SCH ×2 (10:22→21:23)
[2022-05-08] MEDS: methylPREDNISolone NA SUCC 40 MG/1 ML VIAL IVPUSH SCH ×2 (10:22→21:23)
[2022-05-08] MEDS: BUDESONIDE/FORMETEROL FUMARATE 160/4.5 mcg INHALER IH SCH ×2 (10:24→21:33)
[2022-05-08] MEDS: TIOTROPIUM BROMIDE 2.5 MCG (SPIRIVA) RESPIMAT INHALER IH SCH ×2 (10:25→11:33)
[2022-05-08] MEDS: MONTELUKAST NA 10 MG TABLET PO SCH (21:23)
[2022-05-08] MEDS: ATORVASTATIN CA 80 MG TABLET (FP) PO SCH (21:23)
[2022-05-08 21:27] LABS: ALBUMIN 3.3 g/dl (3.4-5.0); CALCIUM 9.1 mg/dL (8.5-10.1)
[2022-05-08 21:31] LABS: BILIRUBIN,TOTAL 1.3 mg/dL (0.2-1); CREATININE 3.2 mg/dL (0.55-1.3); TOT PROT 6.6 g/dl (6.4-8.2)
[2022-05-09] MEDS: INSULIN SLIDING SCALE (NOVOLOG) 1 VIAL SQ SCH ×4 (06:02→21:53)
[2022-05-09] MEDS: INSULIN (LEVEMIR) 100 UNITS/ML UNITS SQ SCH ×2 (06:02→21:54)
[2022-05-09 08:51] LABS: HEMATOCRIT 31.3 % (32.4-45.2); HEMOGLOBIN 9.8 GM/dL (10.7-15.3); MCH 24.7 pg (25.7-33.7); MCHC 31.2 g/dl (32.0-36.0); MEAN CELL VOLUME 79.1 fl (80-96); MEAN PLT VOLUME 9.7 fl (7.5-11.1); PLATELET COUNT 206 10^3/uL (134-434); RBC 3.95 M/mm3 (3.60-5.2); RDW 18.2 % (11.6-15.6); WHITE BLOOD COUNT 8.2 K/mm3 (4.0-10.0)
[2022-05-09 09:16] LABS: ALBUMIN 3.1 g/dl (3.4-5.0)
[2022-05-09 09:17] LABS: BLOOD UREA NITROGEN 91.4 mg/dL (7-18)
[2022-05-09 09:19] LABS: MAGNESIUM 3.1 mg/dL (1.8-2.4); PHOSPHOROUS 5.9 mg/dL (2.5-4.9)
[2022-05-09 09:20] LABS: BILIRUBIN,TOTAL 1.2 mg/dL (0.2-1); TOT PROT 6.7 g/dl (6.4-8.2)
[2022-05-09] MEDS: methylPREDNISolone NA SUCC 40 MG/1 ML VIAL IVPUSH SCH (09:58)
[2022-05-09] MEDS: PANTOPRAZOLE 40 MG TABLET PO SCH (09:59)
[2022-05-09] MEDS: APIXABAN 5 MG TABLET PO SCH ×2 (09:59→21:53)
[2022-05-09] MEDS: TIOTROPIUM BROMIDE 2.5 MCG (SPIRIVA) RESPIMAT INHALER IH SCH (09:59)
[2022-05-09] MEDS: BUDESONIDE/FORMETEROL FUMARATE 160/4.5 mcg INHALER IH SCH ×2 (10:01→21:56)
[2022-05-09] MEDS: NYSTATIN 500,000 UNITS/5 ML SUSPENSION PO SCH ×2 (16:34→18:12)
[2022-05-09] MEDS: MONTELUKAST NA 10 MG TABLET PO SCH (21:53)
[2022-05-09] MEDS: ATORVASTATIN CA 80 MG TABLET (FP) PO SCH (21:53)
[2022-05-10] MEDS: NYSTATIN 500,000 UNITS/5 ML SUSPENSION PO SCH ×5 (01:28→23:12)
[2022-05-10] MEDS: INSULIN SLIDING SCALE (NOVOLOG) 1 VIAL SQ SCH ×4 (06:05→21:16)
[2022-05-10] MEDS: INSULIN (LEVEMIR) 100 UNITS/ML UNITS SQ SCH (06:06)
[2022-05-10 09:29] LABS: BASO % 0.3 % (0-2.0); HEMATOCRIT 29.8 % (32.4-45.2); HEMOGLOBIN 9.7 GM/dL (10.7-15.3); LYMPH % 2.5 % (8-40); MCH 25.7 pg (25.7-33.7); MCHC 32.5 g/dl (32.0-36.0); MEAN CELL VOLUME 78.8 fl (80-96); MEAN PLT VOLUME 9.7 fl (7.5-11.1); MONO % 13.4 % (3.8-10.2); NEUT % 83.8 % (42.8-82.8); PLATELET COUNT 184 10^3/uL (134-434); RBC 3.78 M/mm3 (3.60-5.2); RDW 18.2 % (11.6-15.6); WHITE BLOOD COUNT 12.7 K/mm3 (4.0-10.0)
[2022-05-10 09:44] LABS: ALBUMIN 3.2 g/dl (3.4-5.0); CALCIUM 9.4 mg/dL (8.5-10.1)
[2022-05-10 09:46] LABS: BLOOD UREA NITROGEN 92.6 mg/dL (7-18)
[2022-05-10 09:47] LABS: MAGNESIUM 3.2 mg/dL (1.8-2.4)
[2022-05-10 09:50] LABS: CREATININE 2.6 mg/dL (0.55-1.3); PHOSPHOROUS 4.9 mg/dL (2.5-4.9)
[2022-05-10 09:53] LABS: TOT PROT 6.8 g/dl (6.4-8.2)
[2022-05-10 09:55] LABS: BILIRUBIN,TOTAL 1.4 mg/dL (0.2-1)
[2022-05-10] MEDS: APIXABAN 5 MG TABLET PO SCH ×2 (10:09→21:16)
[2022-05-10] MEDS: methylPREDNISolone NA SUCC 40 MG/1 ML VIAL IVPUSH SCH (10:09)
[2022-05-10] MEDS: BUDESONIDE/FORMETEROL FUMARATE 160/4.5 mcg INHALER IH SCH ×2 (10:09→21:17)
[2022-05-10] MEDS: PANTOPRAZOLE 40 MG TABLET PO SCH (10:09)
[2022-05-10] MEDS: TIOTROPIUM BROMIDE 2.5 MCG (SPIRIVA) RESPIMAT INHALER IH SCH (10:09)
[2022-05-10] MEDS ORDERED: INSULIN (LEVEMIR) 100 UNITS/ML UNITS SQ SCH (10:48)
[2022-05-10] MEDS: MONTELUKAST NA 10 MG TABLET PO SCH (21:16)
[2022-05-11] MEDS: NYSTATIN 500,000 UNITS/5 ML SUSPENSION PO SCH ×3 (06:09→17:11)
[2022-05-11] MEDS: INSULIN SLIDING SCALE (NOVOLOG) 1 VIAL SQ SCH ×4 (06:10→22:40)
[2022-05-11] MEDS: APIXABAN 5 MG TABLET PO SCH ×2 (10:44→22:40)
[2022-05-11] MEDS: PANTOPRAZOLE 40 MG TABLET PO SCH (10:44)
[2022-05-11] MEDS: BUDESONIDE/FORMETEROL FUMARATE 160/4.5 mcg INHALER IH SCH ×2 (10:44→22:41)
[2022-05-11] MEDS: methylPREDNISolone NA SUCC 40 MG/1 ML VIAL IVPUSH SCH (10:44)
[2022-05-11] MEDS: TIOTROPIUM BROMIDE 2.5 MCG (SPIRIVA) RESPIMAT INHALER IH SCH (10:44)
[2022-05-11 11:08] LABS: ALBUMIN 3.3 g/dl (3.4-5.0); BLOOD UREA NITROGEN 94.9 mg/dL (7-18); CALCIUM 10.1 mg/dL (8.5-10.1)
[2022-05-11 11:09] LABS: CREATININE 2.5 mg/dL (0.55-1.3)
[2022-05-11 11:12] LABS: BILIRUBIN,TOTAL 1.6 mg/dL (0.2-1); TOT PROT 6.7 g/dl (6.4-8.2)
[2022-05-11] MEDS ORDERED: predniSONE 20 MG TABLET (UD) PO SCH (11:30)
[2022-05-11 15:12] LABS: BASO % 0.4 % (0-2.0); HEMATOCRIT 31.8 % (32.4-45.2); HEMOGLOBIN 9.8 GM/dL (10.7-15.3); LYMPH % 2.4 % (8-40); MCH 24.4 pg (25.7-33.7); MCHC 30.7 g/dl (32.0-36.0); MEAN CELL VOLUME 79.6 fl (80-96); MEAN PLT VOLUME 10.4 fl (7.5-11.1); MONO % 9.1 % (3.8-10.2); NEUT % 88.1 % (42.8-82.8); PLATELET COUNT 193 10^3/uL (134-434); RBC 3.99 M/mm3 (3.60-5.2); RDW 18.2 % (11.6-15.6); WHITE BLOOD COUNT 12.9 K/mm3 (4.0-10.0)
[2022-05-11] MEDS ORDERED: INSULIN (NOVOLOG) ASPART 100 UNITS/ML 10ML VIAL ONE (17:12)
[2022-05-11] MEDS: MONTELUKAST NA 10 MG TABLET PO SCH (22:40)
[2022-05-12] MEDS: NYSTATIN 500,000 UNITS/5 ML SUSPENSION PO SCH ×2 (00:20→06:16)
[2022-05-12] MEDS: INSULIN SLIDING SCALE (NOVOLOG) 1 VIAL SQ SCH ×3 (06:16→16:06)
[2022-05-12] MEDS ORDERED: DEXTROSE 50%-WATER - 25 GM/50 ML VIAL IVPUSH ONE ×3 (08:58→19:41)
[2022-05-12] MEDS ORDERED: DEXTROSE 50%-WATER 25 GM/50 ML DISP.SYRIN ONE (09:04)
[2022-05-12] MEDS ORDERED: HYDROCORTISONE SOD SUCCINATE 100 MG/2 ML VIAL ONE (09:22)
[2022-05-12] MEDS: methylPREDNISolone NA SUCC 40 MG/1 ML VIAL IVPUSH SCH ×2 (09:30→10:36)
[2022-05-12] MEDS ORDERED: predniSONE 20 MG TABLET (UD) PO SCH (10:00)
[2022-05-12] MEDS: TIOTROPIUM BROMIDE 2.5 MCG (SPIRIVA) RESPIMAT INHALER IH SCH (10:00)
[2022-05-12] MEDS: HYDROCORTISONE SOD SUCCINATE 100 MG/2 ML VIAL IVPB SCH ×3 (10:37→21:54)
[2022-05-12] MEDS: BUDESONIDE/FORMETEROL FUMARATE 160/4.5 mcg INHALER IH SCH ×2 (10:41→21:55)
[2022-05-12] MEDS ORDERED: LACTATED RINGERS SOLUTION 1,000 ML/1,000 ML INFUS.BAG IV STA (11:03)
[2022-05-12 11:09] LABS: ARTERIAL BLD GAS O2 SATURATION 61.6 % (95-98); ARTERIAL BLOOD GAS BASE EXCESS -16.9 mmol/L (-2-2); ARTERIAL BLOOD GAS PO2 44.2 mmHg (80-100)
[2022-05-12 11:10] LABS: ALLENS TEST POSITIVE; PT'S TEMP 91.4; VENT MODE A/C; VENT RATE 14
[2022-05-12 11:16] LABS: ARTERIAL BLOOD GAS pH 7.064 (7.350-7.450)
[2022-05-12] MEDS: MUPIROCIN 2% TOPICAL OINTMENT FOR DECOLONIZATION NS SCH ×2 (11:28→21:55)
[2022-05-12] MEDS ORDERED: NOREPINEPHRINE BITARTRATE 4,000 MCG in DEXTROSE 5%-WATER - 496 ML IV SCH (11:30)
[2022-05-12] MEDS ORDERED: NOREPINEPHRINE BITARTRATE 4 MG/4 ML ML IV ONE ×2 (11:31→11:38)
[2022-05-12] MEDS ORDERED: INSULIN (NOVOLOG) ASPART 100 UNITS/ML 10ML VIAL ONE (11:32)
[2022-05-12] MEDS ORDERED: DOPAMINE 400 MG/D5W - 400,000 MCG/250 ML INFUS.BAG IVPB ONE (11:47)
[2022-05-12] MEDS: DOPAMINE 400 MG/D5W - 400,000 MCG/250 ML INFUS.BAG IVPB SCH ×2 (11:50→23:40)
[2022-05-12] MEDS ORDERED: PROPOFOL 1,000,000 MCG/100 ML VIAL ONE ×2 (12:05→18:55)
[2022-05-12] MEDS: PROPOFOL 1,000,000 MCG/100 ML VIAL IVPB SCH (12:20)
[2022-05-12] MEDS: NOREPINEPHRINE BITARTRATE 16,000 MCG in SODIUM CHLORIDE 484 ML IV SCH ×2 (12:20→13:40)
[2022-05-12] MEDS: FLUDROCORTISONE ACETATE 0.1 MG TABLET (FP) NGT SCH (13:42)
[2022-05-12 14:02] LABS: ARTERIAL BLD GAS O2 SATURATION 99.4 % (95-98); ARTERIAL BLOOD GAS BASE EXCESS -16.5 mmol/L (-2-2); ARTERIAL BLOOD GAS PO2 272.1 mmHg (80-100)
[2022-05-12 14:09] LABS: PT'S TEMP 91.4; VENT MODE A/C; VENT RATE 14
[2022-05-12] MEDS ORDERED: ARTIFICIAL TEARS (POLYVINYL ALCOHOL) OPTH DROPS OU PRN (15:10)
[2022-05-12] MEDS: APIXABAN 5 MG TABLET PO SCH ×3 (15:48→22:23)
[2022-05-12] MEDS: PANTOPRAZOLE 40 MG TABLET PO SCH (15:48)
[2022-05-12 17:59] LABS: LACTIC ACID 14.9 mmol/L (0.4-2.0)
[2022-05-12] MEDS ORDERED: ACETAMINOPHEN 325 MG TABLET (FP) PO PRN (19:41)
[2022-05-12] MEDS ORDERED: PROCHLORPERAZINE INJECTION 10 MG/2 ML VIAL IVPB PRN (19:41)
[2022-05-12] MEDS: MONTELUKAST NA 10 MG TABLET PO SCH ×2 (21:55→22:23)
[2022-05-12] MEDS: CHLORHEXIDINE GLUCONATE 4% CLEANSER FOR DECOLONIZATION TP SCH (21:55)
[2022-05-12] MEDS ORDERED: INSULIN SLIDING SCALE (NOVOLOG) 1 VIAL SQ SCH (22:00)
[2022-05-13] MEDS ORDERED: SODIUM CHLORIDE 500 ML IV STA ×3 (00:04→14:42)
[2022-05-13] MEDS: INSULIN SLIDING SCALE (NOVOLOG) 1 VIAL SQ SCH ×6 (01:57→21:12)
[2022-05-13] MEDS: HYDROCORTISONE SOD SUCCINATE 100 MG/2 ML VIAL IVPB SCH ×4 (05:46→21:11)
[2022-05-13] MEDS: DOPAMINE 400 MG/D5W - 400,000 MCG/250 ML INFUS.BAG IVPB SCH ×2 (06:46→20:26)
[2022-05-13 08:08] LABS: HEMATOCRIT 32.5 % (32.4-45.2); HEMOGLOBIN 10.2 GM/dL (10.7-15.3); MCH 24.5 pg (25.7-33.7); MCHC 31.4 g/dl (32.0-36.0); MEAN CELL VOLUME 78.3 fl (80-96); MEAN PLT VOLUME 11.3 fl (7.5-11.1); PLATELET COUNT 170 10^3/uL (134-434); RBC 4.15 M/mm3 (3.60-5.2); RDW 18.2 % (11.6-15.6); WHITE BLOOD COUNT 24.2 K/mm3 (4.0-10.0)
[2022-05-13 08:15] LABS: CHLORIDE 94 mmol/L (98-107); SODIUM 136 mmol/L (136-145)
[2022-05-13 08:17] LABS: ALBUMIN 2.6 g/dl (3.4-5.0); ANION GAP 17 MMOL/L (8-16); CALCIUM 8.8 mg/dL (8.5-10.1); CO2 24 mmol/L (21-32); GLUCOSE,RANDOM 316 mg/dL (74-106)
[2022-05-13 08:20] LABS: CREATININE 3.8 mg/dL (0.55-1.3); PHOSPHOROUS 5.6 mg/dL (2.5-4.9); SGOT/AST 324 U/L (15-37); SGPT/ALT 310 U/L (13-61)
[2022-05-13 08:22] LABS: BILIRUBIN,TOTAL 2.6 mg/dL (0.2-1); TOT PROT 5.2 g/dl (6.4-8.2)
[2022-05-13 08:23] LABS: ALK PHOS 148 U/L (45-117)
[2022-05-13 08:27] LABS: BLOOD UREA NITROGEN 123.1 mg/dL (7-18)
[2022-05-13 09:17] LABS: ARTERIAL BLD GAS O2 SATURATION 98.7 % (95-98); ARTERIAL BLOOD GAS BASE EXCESS -0.7 mmol/L (-2-2); ARTERIAL BLOOD GAS pH 7.545 (7.350-7.450)
[2022-05-13 09:19] LABS: VENT MODE AC; VENT RATE 32
[2022-05-13] MEDS: MUPIROCIN 2% TOPICAL OINTMENT FOR DECOLONIZATION NS SCH ×2 (09:59→21:11)
[2022-05-13] MEDS ORDERED: PANTOPRAZOLE 40 MG TABLET PO SCH (10:00)
[2022-05-13] MEDS ORDERED: ENOXAPARIN NA (PORCINE) 60 MG/0.6 ML DISP.SYRIN SQ SCH (10:00)
[2022-05-13] MEDS: TIOTROPIUM BROMIDE 2.5 MCG (SPIRIVA) RESPIMAT INHALER IH SCH (10:00)
[2022-05-13] MEDS: BUDESONIDE/FORMETEROL FUMARATE 160/4.5 mcg INHALER IH SCH ×2 (10:00→21:12)
[2022-05-13] MEDS: FLUDROCORTISONE ACETATE 0.1 MG TABLET (FP) NGT SCH ×2 (10:19→12:14)
[2022-05-13] MEDS ORDERED: SODIUM CHLORIDE 1,000 ML IV SCH (10:30)
[2022-05-13 10:59] LABS: LACTIC ACID 6.6 mmol/L (0.4-2.0)
[2022-05-13 12:00] LABS: BILIRUBIN,DIRECT 1.8 mg/dL (0.0-0.2)
[2022-05-13] MEDS: ENOXAPARIN NA (PORCINE) 60 MG/0.6 ML DISP.SYRIN SQ SCH (12:00)
[2022-05-13] MEDS: PANTOPRAZOLE SODIUM 40 MG VIAL IVPUSH SCH (12:00)
[2022-05-13] MEDS: PROPOFOL 1,000,000 MCG/100 ML VIAL IVPB SCH (12:08)
[2022-05-13] MEDS: NOREPINEPHRINE BITARTRATE 16,000 MCG in SODIUM CHLORIDE 484 ML IV SCH (12:17)
[2022-05-13] MEDS ORDERED: dilTIAZem HCL 50 MG/10 ML - 10 ML VIAL IVPUSH ONE (12:56)
[2022-05-13] MEDS ORDERED: SODIUM CHLORIDE 250 ML IV STA (13:23)
[2022-05-13 15:58] LABS: ARTERIAL BLD GAS O2 SATURATION 96.5 % (95-98); ARTERIAL BLOOD GAS BASE EXCESS -0.4 mmol/L (-2-2); ARTERIAL BLOOD GAS PO2 87.5 mmHg (80-100); ARTERIAL BLOOD GAS pH 7.385 (7.350-7.450)
[2022-05-13] MEDS ORDERED: VANCOMYCIN 1,000 MG in DEXTROSE 5%-WATER - 250 ML IVPB SCH (16:00)
[2022-05-13] MEDS ORDERED: CEFEPIME HCL/D5W 1 GM/50 ML BAG IVPB SCH (16:00)
[2022-05-13] MEDS ORDERED: VANCOMYCIN/WATER FOR INJ (PEG) 1,000 MG/200 ML BAG IVPB ONE (16:27)
[2022-05-13] MEDS: CEFEPIME 1 GM in DEXTROSE 5%-WATER - 50 ML IVPB SCH (17:07)
[2022-05-13] MEDS: SODIUM CHLORIDE 1,000 ML IV SCH (17:22)
[2022-05-13] MEDS: MONTELUKAST NA 10 MG TABLET PO SCH (21:11)
[2022-05-13] MEDS: CHLORHEXIDINE GLUCONATE 4% CLEANSER FOR DECOLONIZATION TP SCH (21:11)
[2022-05-14] MEDS: INSULIN SLIDING SCALE (NOVOLOG) 1 VIAL SQ SCH ×5 (01:09→21:50)
[2022-05-14] MEDS: PROPOFOL 1,000,000 MCG/100 ML VIAL IVPB SCH ×3 (04:14→22:45)
[2022-05-14] MEDS: HYDROCORTISONE SOD SUCCINATE 100 MG/2 ML VIAL IVPB SCH ×4 (04:15→21:27)
[2022-05-14] MEDS: CEFEPIME 1 GM in DEXTROSE 5%-WATER - 50 ML IVPB SCH ×2 (06:53→17:36)
[2022-05-14 07:48] LABS: HEMATOCRIT 28.6 % (32.4-45.2); MCH 24.5 pg (25.7-33.7); MCHC 31.4 g/dl (32.0-36.0); MEAN CELL VOLUME 78.1 fl (80-96); MEAN PLT VOLUME 11.4 fl (7.5-11.1); PLATELET COUNT 102 10^3/uL (134-434); RBC 3.66 M/mm3 (3.60-5.2); RDW 18.6 % (11.6-15.6); WHITE BLOOD COUNT 22.3 K/mm3 (4.0-10.0)
[2022-05-14 08:14] LABS: CHLORIDE 101 mmol/L (98-107); SODIUM 141 mmol/L (136-145)
[2022-05-14 08:16] LABS: CALCIUM 8.3 mg/dL (8.5-10.1); GLUCOSE,RANDOM 190 mg/dL (74-106)
[2022-05-14 08:17] LABS: ALBUMIN 2.1 g/dl (3.4-5.0); ANION GAP 12 MMOL/L (8-16); CO2 27 mmol/L (21-32); MAGNESIUM 2.7 mg/dL (1.8-2.4)
[2022-05-14 08:19] LABS: SGPT/ALT 291 U/L (13-61)
[2022-05-14 08:20] LABS: CREATININE 3.5 mg/dL (0.55-1.3); PHOSPHOROUS 5.4 mg/dL (2.5-4.9); SGOT/AST 225 U/L (15-37)
[2022-05-14 08:21] LABS: BILIRUBIN,TOTAL 2.7 mg/dL (0.2-1); TOT PROT 4.3 g/dl (6.4-8.2)
[2022-05-14 08:22] LABS: ALK PHOS 129 U/L (45-117)
[2022-05-14] MEDS: PANTOPRAZOLE SODIUM 40 MG VIAL IVPUSH SCH (09:14)
[2022-05-14] MEDS: ENOXAPARIN NA (PORCINE) 60 MG/0.6 ML DISP.SYRIN SQ SCH (09:14)
[2022-05-14] MEDS: MUPIROCIN 2% TOPICAL OINTMENT FOR DECOLONIZATION NS SCH ×2 (09:14→21:27)
[2022-05-14] MEDS: TIOTROPIUM BROMIDE 2.5 MCG (SPIRIVA) RESPIMAT INHALER IH SCH (09:15)
[2022-05-14] MEDS: BUDESONIDE/FORMETEROL FUMARATE 160/4.5 mcg INHALER IH SCH ×2 (09:15→21:28)
[2022-05-14 09:51] LABS: ANISOCYTOSIS 2+; MACROCYTOSIS 0; TARGET CELLS 1+
[2022-05-14] MEDS ORDERED: DEXTROSE 50%-WATER 25 GM/50 ML DISP.SYRIN IVPUSH PRN (09:57)
[2022-05-14] MEDS ORDERED: MULTIVIT INJ. ADULT COMBO WITH VIT K 1 COMBO 10 ML VIAL IV SCH (12:30)
[2022-05-14] MEDS: NOREPINEPHRINE BITARTRATE 16,000 MCG in SODIUM CHLORIDE 484 ML IV SCH (13:00)
[2022-05-14] MEDS ORDERED: VASOPRESSIN 20 UNITS/ML VIAL IV ONE (14:37)
[2022-05-14] MEDS: DEXMEDETOMIDINE PREMIX 400 MCG/100 ML BAG IVPB SCH (15:20)
[2022-05-14] MEDS: AMINO ACIDS 4.25%/D5W 1,000 ML IV SCH (15:35)
[2022-05-14] MEDS ORDERED: LACTATED RINGERS SOLUTION 1000 ML INFUS.BAG IV ONE (15:55)
[2022-05-14] MEDS: SODIUM CHLORIDE 1,000 ML IV SCH (16:11)
[2022-05-14] MEDS ORDERED: VASOPRESSIN 40 UNITS/100 ML BAG IV SCH (16:15)
[2022-05-14] MEDS ORDERED: INSULIN SLIDING SCALE (NOVOLOG) 1 VIAL SQ SCH (18:00)
[2022-05-14 21:06] LABS: ATYPICAL pANCA <1:20 titer (Neg:<1:20); C-ANCA <1:20 titer (Neg:<1:20)
[2022-05-14] MEDS: CHLORHEXIDINE GLUCONATE 4% CLEANSER FOR DECOLONIZATION TP SCH (21:27)
[2022-05-14] MEDS: MONTELUKAST NA 10 MG TABLET PO SCH (21:28)
[2022-05-14] MEDS ORDERED: INSULIN (LEVEMIR) 100 UNITS/ML UNITS SQ SCH (22:00)
[2022-05-15] MEDS: HYDROCORTISONE SOD SUCCINATE 100 MG/2 ML VIAL IVPB SCH ×4 (02:37→21:58)
[2022-05-15] MEDS: DEXMEDETOMIDINE PREMIX 400 MCG/100 ML BAG IVPB SCH (03:13)
[2022-05-15] MEDS: CEFEPIME 1 GM in DEXTROSE 5%-WATER - 50 ML IVPB SCH (04:12)
[2022-05-15] MEDS: INSULIN SLIDING SCALE (NOVOLOG) 1 VIAL SQ SCH ×4 (06:58→21:58)
[2022-05-15] MEDS: INSULIN (LEVEMIR) 100 UNITS/ML UNITS SQ SCH (06:58)
[2022-05-15 08:21] LABS: ACTIVATED PTT 33.7 SECONDS (25.2-36.5)
[2022-05-15 08:23] LABS: INR 1.76 (0.83-1.09); PROTHROMBIN TIME (PATIENT) 20.3 SEC (9.7-13.0)
[2022-05-15 08:29] LABS: CHLORIDE 104 mmol/L (98-107); SODIUM 141 mmol/L (136-145)
[2022-05-15 08:30] LABS: HEMATOCRIT 25.9 % (32.4-45.2); HEMOGLOBIN 8.2 GM/dL (10.7-15.3); MCH 24.7 pg (25.7-33.7); MCHC 31.5 g/dl (32.0-36.0); MEAN CELL VOLUME 78.3 fl (80-96); MEAN PLT VOLUME 11.6 fl (7.5-11.1); RBC 3.31 M/mm3 (3.60-5.2); RDW 18.1 % (11.6-15.6)
[2022-05-15 08:34] LABS: CALCIUM 8.4 mg/dL (8.5-10.1); GLUCOSE,RANDOM 232 mg/dL (74-106)
[2022-05-15 08:35] LABS: ALBUMIN 2.1 g/dl (3.4-5.0); ANION GAP 11 MMOL/L (8-16); CO2 26 mmol/L (21-32); MAGNESIUM 2.4 mg/dL (1.8-2.4)
[2022-05-15 08:37] LABS: SGPT/ALT 243 U/L (13-61)
[2022-05-15 08:38] LABS: CREATININE 3.2 mg/dL (0.55-1.3); PHOSPHOROUS 5.1 mg/dL (2.5-4.9); SGOT/AST 125 U/L (15-37)
[2022-05-15 08:39] LABS: BILIRUBIN,TOTAL 2.4 mg/dL (0.2-1); TOT PROT 4.4 g/dl (6.4-8.2)
[2022-05-15 08:40] LABS: ALK PHOS 122 U/L (45-117)
[2022-05-15 08:45] LABS: BLOOD UREA NITROGEN 112.3 mg/dL (7-18)
[2022-05-15] MEDS: PANTOPRAZOLE SODIUM 40 MG VIAL IVPUSH SCH (08:59)
[2022-05-15] MEDS: MUPIROCIN 2% TOPICAL OINTMENT FOR DECOLONIZATION NS SCH ×2 (09:01→21:58)
[2022-05-15] MEDS: TIOTROPIUM BROMIDE 2.5 MCG (SPIRIVA) RESPIMAT INHALER IH SCH (09:02)
[2022-05-15] MEDS: BUDESONIDE/FORMETEROL FUMARATE 160/4.5 mcg INHALER IH SCH ×2 (09:02→22:05)
[2022-05-15 09:17] LABS: PLATELET COUNT 76 10^3/uL (134-434)
[2022-05-15 10:33] LABS: ARTERIAL BLD GAS O2 SATURATION 97.3 % (95-98); ARTERIAL BLOOD GAS BASE EXCESS -1.9 mmol/L (-2-2); ARTERIAL BLOOD GAS PO2 90.6 mmHg (80-100); ARTERIAL BLOOD GAS pH 7.439 (7.350-7.450)
[2022-05-15 10:34] LABS: ALLENS TEST POSITIVE; PT'S TEMP 96.6; VENT MODE AC
[2022-05-15 10:35] LABS: VENT RATE 20
[2022-05-15] MEDS: AMINO ACIDS 4.25%/D5W 1,000 ML IV SCH ×2 (10:46→13:12)
[2022-05-15] MEDS: CEFTRIAXONE 2 GM in DEXTROSE 5%-WATER 100 ML IVPB SCH (12:44)
[2022-05-15] MEDS: MULTIVIT INJ. ADULT COMBO WITH VIT K 1 COMBO 10 ML VIAL IV SCH (13:13)
[2022-05-15] MEDS ORDERED: LABETALOL HCL 5 MG/1 ML (100MG/20 ML VIAL) IVPUSH ONE (14:15)
[2022-05-15] MEDS: PROPOFOL 1,000,000 MCG/100 ML VIAL IVPB SCH (19:15)
[2022-05-15] MEDS: CHLORHEXIDINE GLUCONATE 4% CLEANSER FOR DECOLONIZATION TP SCH (21:58)
[2022-05-15] MEDS ORDERED: CEFAZOLIN 1 GM in DEXTROSE 5%-WATER - 50 ML IVPB SCH (22:00)
[2022-05-15] MEDS: MONTELUKAST NA 10 MG TABLET PO SCH (22:05)
[2022-05-15] MEDS: NOREPINEPHRINE BITARTRATE 16,000 MCG in SODIUM CHLORIDE 484 ML IV SCH (22:08)
[2022-05-16] MEDS: DEXMEDETOMIDINE PREMIX 400 MCG/100 ML BAG IVPB SCH ×2 (01:29→18:01)
[2022-05-16] MEDS: HYDROCORTISONE SOD SUCCINATE 100 MG/2 ML VIAL IVPB SCH ×4 (03:33→21:34)
[2022-05-16 06:55] LABS: ARTERIAL BLD GAS O2 SATURATION 97.9 % (95-98); ARTERIAL BLOOD GAS BASE EXCESS -3.5 mmol/L (-2-2); ARTERIAL BLOOD GAS PO2 102.8 mmHg (80-100); ARTERIAL BLOOD GAS pH 7.435 (7.350-7.450)
[2022-05-16 06:59] LABS: VENT MODE A/C; VENT RATE 20
[2022-05-16] MEDS: INSULIN (LEVEMIR) 100 UNITS/ML UNITS SQ SCH (07:00)
[2022-05-16] MEDS: INSULIN SLIDING SCALE (NOVOLOG) 1 VIAL SQ SCH ×4 (07:02→21:35)
[2022-05-16] MEDS: PANTOPRAZOLE SODIUM 40 MG VIAL IVPUSH SCH (09:53)
[2022-05-16] MEDS: CEFTRIAXONE 2 GM in DEXTROSE 5%-WATER 100 ML IVPB SCH (09:54)
[2022-05-16] MEDS: BUDESONIDE/FORMETEROL FUMARATE 160/4.5 mcg INHALER IH SCH ×2 (09:56→21:35)
[2022-05-16] MEDS: TIOTROPIUM BROMIDE 2.5 MCG (SPIRIVA) RESPIMAT INHALER IH SCH (09:56)
[2022-05-16] MEDS: MUPIROCIN 2% TOPICAL OINTMENT FOR DECOLONIZATION NS SCH ×2 (09:59→21:35)
[2022-05-16] MEDS ORDERED: LABETALOL HCL 5 MG/1 ML (100MG/20 ML VIAL) IVPUSH ONE (12:24)
[2022-05-16 13:09] LABS: HEMATOCRIT 28.2 % (32.4-45.2); HEMOGLOBIN 8.9 GM/dL (10.7-15.3); MCH 24.7 pg (25.7-33.7); MCHC 31.5 g/dl (32.0-36.0); MEAN CELL VOLUME 78.3 fl (80-96); MEAN PLT VOLUME 12.2 fl (7.5-11.1); PLATELET COUNT 85 10^3/uL (134-434); RDW 18.7 % (11.6-15.6); WHITE BLOOD COUNT 22.1 K/mm3 (4.0-10.0)
[2022-05-16] MEDS: AMINO ACIDS 4.25%/D5W 1,000 ML IV SCH (13:14)
[2022-05-16] MEDS: MULTIVIT INJ. ADULT COMBO WITH VIT K 1 COMBO 10 ML VIAL IV SCH (13:15)
[2022-05-16 13:18] LABS: INR 1.28 (0.83-1.09); PROTHROMBIN TIME (PATIENT) 14.7 SEC (9.7-13.0)
[2022-05-16 13:20] LABS: ACTIVATED PTT 30.1 SECONDS (25.2-36.5)
[2022-05-16] MEDS: NOREPINEPHRINE BITARTRATE 16,000 MCG in SODIUM CHLORIDE 484 ML IV SCH (15:48)
[2022-05-16 17:40] LABS: CHLORIDE 106 mmol/L (98-107); SODIUM 143 mmol/L (136-145)
[2022-05-16 17:43] LABS: CALCIUM 8.7 mg/dL (8.5-10.1)
[2022-05-16 17:44] LABS: ALBUMIN 2.2 g/dl (3.4-5.0); ANION GAP 13 MMOL/L (8-16); CO2 24 mmol/L (21-32); GLUCOSE,RANDOM 175 mg/dL (74-106); MAGNESIUM 2.2 mg/dL (1.8-2.4)
[2022-05-16 17:46] LABS: CREATININE 2.6 mg/dL (0.55-1.3)
[2022-05-16 17:47] LABS: BILIRUBIN,TOTAL 1.8 mg/dL (0.2-1); PHOSPHOROUS 4.7 mg/dL (2.5-4.9); SGOT/AST 64 U/L (15-37); SGPT/ALT 192 U/L (13-61); TOT PROT 4.9 g/dl (6.4-8.2)
[2022-05-16 17:49] LABS: ALK PHOS 128 U/L (45-117)
[2022-05-16 17:50] LABS: BLOOD UREA NITROGEN 109.1 mg/dL (7-18)
[2022-05-16] MEDS: dilTIAZem HCL 30 MG TABLET NGT SCH (18:08)
[2022-05-16] MEDS: CHLORHEXIDINE GLUCONATE 4% CLEANSER FOR DECOLONIZATION TP SCH (21:35)
[2022-05-16] MEDS: MONTELUKAST NA 10 MG TABLET PO SCH (21:36)
[2022-05-17] MEDS: dilTIAZem HCL 30 MG TABLET NGT SCH ×5 (00:33→23:47)
[2022-05-17] MEDS: HYDROCORTISONE SOD SUCCINATE 100 MG/2 ML VIAL IVPB SCH ×4 (02:08→21:18)
[2022-05-17] MEDS: INSULIN SLIDING SCALE (NOVOLOG) 1 VIAL SQ SCH ×4 (06:22→21:16)
[2022-05-17] MEDS: INSULIN (LEVEMIR) 100 UNITS/ML UNITS SQ SCH (06:22)
[2022-05-17 08:22] LABS: CHLORIDE 108 mmol/L (98-107); SODIUM 143 mmol/L (136-145)
[2022-05-17 08:26] LABS: ALBUMIN 1.9 g/dl (3.4-5.0); ANION GAP 11 MMOL/L (8-16); CALCIUM 8.5 mg/dL (8.5-10.1); CO2 24 mmol/L (21-32); GLUCOSE,RANDOM 157 mg/dL (74-106)
[2022-05-17 08:28] LABS: CREATININE 2.2 mg/dL (0.55-1.3); PHOSPHOROUS 3.9 mg/dL (2.5-4.9); SGOT/AST 44 U/L (15-37)
[2022-05-17 08:29] LABS: SGPT/ALT 146 U/L (13-61)
[2022-05-17 08:31] LABS: BILIRUBIN,TOTAL 1.7 mg/dL (0.2-1); TOT PROT 4.5 g/dl (6.4-8.2)
[2022-05-17 08:32] LABS: ALK PHOS 113 U/L (45-117)
[2022-05-17 08:44] LABS: HEMATOCRIT 25.4 % (32.4-45.2); MCH 24.5 pg (25.7-33.7); MCHC 31.5 g/dl (32.0-36.0); MEAN CELL VOLUME 77.8 fl (80-96); MEAN PLT VOLUME 12.3 fl (7.5-11.1); RBC 3.26 M/mm3 (3.60-5.2); RDW 18.7 % (11.6-15.6); WHITE BLOOD COUNT 17.5 K/mm3 (4.0-10.0)
[2022-05-17 08:49] LABS: PLATELET COUNT 69 10^3/uL (134-434)
[2022-05-17 09:53] LABS: ARTERIAL BLD GAS O2 SATURATION 98.6 % (95-98); ARTERIAL BLOOD GAS BASE EXCESS -5.1 mmol/L (-2-2); ARTERIAL BLOOD GAS PO2 123.3 mmHg (80-100); ARTERIAL BLOOD GAS pH 7.432 (7.350-7.450)
[2022-05-17] MEDS: CEFTRIAXONE 2 GM in DEXTROSE 5%-WATER 100 ML IVPB SCH (10:07)
[2022-05-17] MEDS: PANTOPRAZOLE SODIUM 40 MG VIAL IVPUSH SCH (10:11)
[2022-05-17] MEDS: TIOTROPIUM BROMIDE 2.5 MCG (SPIRIVA) RESPIMAT INHALER IH SCH (10:12)
[2022-05-17] MEDS: BUDESONIDE/FORMETEROL FUMARATE 160/4.5 mcg INHALER IH SCH ×2 (10:12→21:23)
[2022-05-17] MEDS ORDERED: LABETALOL HCL 5 MG/1 ML (100MG/20 ML VIAL) IVPUSH ONE (10:56)
[2022-05-17] MEDS: MULTIVIT INJ. ADULT COMBO WITH VIT K 1 COMBO 10 ML VIAL IV SCH (12:59)
[2022-05-17] MEDS: NOREPINEPHRINE BITARTRATE 16,000 MCG in SODIUM CHLORIDE 484 ML IV SCH (12:59)
[2022-05-17] MEDS: DEXMEDETOMIDINE PREMIX 400 MCG/100 ML BAG IVPB SCH (16:30)
[2022-05-17] MEDS: CHLORHEXIDINE GLUCONATE 4% CLEANSER FOR DECOLONIZATION TP SCH (21:16)
[2022-05-17] MEDS: MONTELUKAST NA 10 MG TABLET PO SCH (21:18)
[2022-05-18] MEDS: dilTIAZem HCL 30 MG TABLET NGT SCH ×3 (05:08→17:41)
[2022-05-18] MEDS: INSULIN (LEVEMIR) 100 UNITS/ML UNITS SQ SCH (06:26)
[2022-05-18] MEDS: INSULIN SLIDING SCALE (NOVOLOG) 1 VIAL SQ SCH ×4 (06:26→21:24)
[2022-05-18 06:45] LABS: ARTERIAL BLD GAS O2 SATURATION 96.8 % (95-98); ARTERIAL BLOOD GAS BASE EXCESS -1.9 mmol/L (-2-2); ARTERIAL BLOOD GAS PO2 93.1 mmHg (80-100); ARTERIAL BLOOD GAS pH 7.358 (7.350-7.450)
[2022-05-18 06:52] LABS: ALLENS TEST POSITIVE; VENT MODE A/C; VENT RATE 18
[2022-05-18 07:19] LABS: CHLORIDE 108 mmol/L (98-107); SODIUM 144 mmol/L (136-145)
[2022-05-18 07:23] LABS: ALBUMIN 2.1 g/dl (3.4-5.0); ANION GAP 10 MMOL/L (8-16); CALCIUM 8.8 mg/dL (8.5-10.1); CO2 26 mmol/L (21-32); GLUCOSE,RANDOM 236 mg/dL (74-106); MAGNESIUM 2.3 mg/dL (1.8-2.4)
[2022-05-18 07:26] LABS: CREATININE 2.1 mg/dL (0.55-1.3); SGOT/AST 49 U/L (15-37); SGPT/ALT 138 U/L (13-61)
[2022-05-18 07:27] LABS: BILIRUBIN,TOTAL 1.3 mg/dL (0.2-1); TOT PROT 4.8 g/dl (6.4-8.2)
[2022-05-18 07:30] LABS: ALK PHOS 185 U/L (45-117); BLOOD UREA NITROGEN 104.5 mg/dL (7-18)
[2022-05-18 07:48] LABS: HEMATOCRIT 25.4 % (32.4-45.2); HEMOGLOBIN 7.8 GM/dL (10.7-15.3); MCH 24.4 pg (25.7-33.7); MCHC 30.7 g/dl (32.0-36.0); MEAN CELL VOLUME 79.6 fl (80-96); MEAN PLT VOLUME 12.2 fl (7.5-11.1); PLATELET COUNT 74 10^3/uL (134-434); RBC 3.19 M/mm3 (3.60-5.2); RDW 18.8 % (11.6-15.6); WHITE BLOOD COUNT 21.4 K/mm3 (4.0-10.0)
[2022-05-18] MEDS: CEFTRIAXONE 2 GM in DEXTROSE 5%-WATER 100 ML IVPB SCH (09:44)
[2022-05-18] MEDS: TIOTROPIUM BROMIDE 2.5 MCG (SPIRIVA) RESPIMAT INHALER IH SCH (09:45)
[2022-05-18] MEDS: HYDROCORTISONE SOD SUCCINATE 100 MG/2 ML VIAL IVPB SCH ×2 (09:45→21:25)
[2022-05-18] MEDS: PANTOPRAZOLE SODIUM 40 MG VIAL IVPUSH SCH (09:45)
[2022-05-18] MEDS: BUDESONIDE/FORMETEROL FUMARATE 160/4.5 mcg INHALER IH SCH ×2 (09:46→21:26)
[2022-05-18] MEDS: MULTIVIT INJ. ADULT COMBO WITH VIT K 1 COMBO 10 ML VIAL IV SCH (12:28)
[2022-05-18] MEDS: DEXMEDETOMIDINE PREMIX 400 MCG/100 ML BAG IVPB SCH (16:52)
[2022-05-18] MEDS: CHLORHEXIDINE GLUCONATE 4% CLEANSER FOR DECOLONIZATION TP SCH (21:24)
[2022-05-18] MEDS: MONTELUKAST NA 10 MG TABLET PO SCH (21:25)
[2022-05-19] MEDS: dilTIAZem HCL 30 MG TABLET NGT SCH ×4 (00:30→18:44)
[2022-05-19] MEDS: INSULIN (LEVEMIR) 100 UNITS/ML UNITS SQ SCH (06:07)
[2022-05-19] MEDS: INSULIN SLIDING SCALE (NOVOLOG) 1 VIAL SQ SCH ×4 (06:08→21:28)
[2022-05-19 06:42] LABS: ARTERIAL BLD GAS O2 SATURATION 97.7 % (95-98); ARTERIAL BLOOD GAS BASE EXCESS 0.1 mmol/L (-2-2); ARTERIAL BLOOD GAS PO2 99.8 mmHg (80-100); ARTERIAL BLOOD GAS pH 7.422 (7.350-7.450)
[2022-05-19 06:44] LABS: ALLENS TEST POSITIVE; VENT MODE A/C; VENT RATE 18
[2022-05-19 07:47] LABS: CALCIUM 8.3 mg/dL (8.5-10.1); HEMATOCRIT 22.2 % (32.4-45.2); MCH 24.6 pg (25.7-33.7); MCHC 30.9 g/dl (32.0-36.0); MEAN CELL VOLUME 79.8 fl (80-96); MEAN PLT VOLUME 14.6 fl (7.5-11.1); PLATELET COUNT 77 10^3/uL (134-434); RBC 2.78 M/mm3 (3.60-5.2); RDW 18.6 % (11.6-15.6); WHITE BLOOD COUNT 17.9 K/mm3 (4.0-10.0)
[2022-05-19 07:48] LABS: ALBUMIN 1.9 g/dl (3.4-5.0); MAGNESIUM 2.1 mg/dL (1.8-2.4)
[2022-05-19 07:51] LABS: CREATININE 1.9 mg/dL (0.55-1.3); PHOSPHOROUS 3.2 mg/dL (2.5-4.9)
[2022-05-19 07:52] LABS: TOT PROT 4.3 g/dl (6.4-8.2)
[2022-05-19 07:58] LABS: HEMOGLOBIN 6.9 GM/dL (10.7-15.3)
[2022-05-19] MEDS: FUROSEMIDE INJECTION 100 MG in SODIUM CHLORIDE 40 ML IVPB SCH (09:50)
[2022-05-19] MEDS: PANTOPRAZOLE SODIUM 40 MG VIAL IVPUSH SCH (10:02)
[2022-05-19] MEDS: HYDROCORTISONE SOD SUCCINATE 100 MG/2 ML VIAL IVPB SCH ×2 (10:02→21:29)
[2022-05-19] MEDS: CEFTRIAXONE 2 GM in DEXTROSE 5%-WATER 100 ML IVPB SCH (10:02)
[2022-05-19] MEDS: TIOTROPIUM BROMIDE 2.5 MCG (SPIRIVA) RESPIMAT INHALER IH SCH (10:12)
[2022-05-19] MEDS: BUDESONIDE/FORMETEROL FUMARATE 160/4.5 mcg INHALER IH SCH ×2 (10:13→21:29)
[2022-05-19 10:20] LABS: ANISOCYTOSIS 2+; MACROCYTOSIS 0; PLATELET ESTIMATE DECREASED; TARGET CELLS 1+
[2022-05-19] MEDS: DEXMEDETOMIDINE PREMIX 400 MCG/100 ML BAG IVPB SCH (14:30)
[2022-05-19] MEDS: CHLORHEXIDINE GLUCONATE 4% CLEANSER FOR DECOLONIZATION TP SCH (21:28)
[2022-05-19] MEDS: MONTELUKAST NA 10 MG TABLET PO SCH (21:29)
[2022-05-20] MEDS: dilTIAZem HCL 30 MG TABLET NGT SCH ×4 (00:07→18:04)
[2022-05-20] MEDS: INSULIN SLIDING SCALE (NOVOLOG) 1 VIAL SQ SCH ×4 (07:21→21:14)
[2022-05-20] MEDS: INSULIN (LEVEMIR) 100 UNITS/ML UNITS SQ SCH (07:22)
[2022-05-20 08:51] LABS: HEMATOCRIT 30.6 % (32.4-45.2); MCH 26.1 pg (25.7-33.7); MCHC 32.8 g/dl (32.0-36.0); MEAN CELL VOLUME 79.8 fl (80-96); MEAN PLT VOLUME 12.6 fl (7.5-11.1); RBC 3.84 M/mm3 (3.60-5.2); RDW 17.8 % (11.6-15.6); WHITE BLOOD COUNT 19.2 K/mm3 (4.0-10.0)
[2022-05-20 09:05] LABS: PLATELET COUNT 65 10^3/uL (134-434)
[2022-05-20 09:06] LABS: ALBUMIN 2.1 g/dl (3.4-5.0); BLOOD UREA NITROGEN 98.3 mg/dL (7-18); CALCIUM 8.4 mg/dL (8.5-10.1)
[2022-05-20 09:09] LABS: CREATININE 1.8 mg/dL (0.55-1.3); PHOSPHOROUS 2.9 mg/dL (2.5-4.9)
[2022-05-20 09:11] LABS: BILIRUBIN,TOTAL 1.1 mg/dL (0.2-1); TOT PROT 4.8 g/dl (6.4-8.2)
[2022-05-20] MEDS: TIOTROPIUM BROMIDE 2.5 MCG (SPIRIVA) RESPIMAT INHALER IH SCH (09:48)
[2022-05-20] MEDS: CEFTRIAXONE 2 GM in DEXTROSE 5%-WATER 100 ML IVPB SCH (09:48)
[2022-05-20] MEDS: FUROSEMIDE INJECTION 100 MG in SODIUM CHLORIDE 40 ML IVPB SCH ×2 (09:48→15:46)
[2022-05-20] MEDS: PANTOPRAZOLE SODIUM 40 MG VIAL IVPUSH SCH (09:48)
[2022-05-20] MEDS: BUDESONIDE/FORMETEROL FUMARATE 160/4.5 mcg INHALER IH SCH ×2 (09:49→21:24)
[2022-05-20] MEDS ORDERED: HYDROCORTISONE SOD SUCCINATE 100 MG/2 ML VIAL IVPB SCH (10:00)
[2022-05-20] MEDS: KCL 10 MEQ IVPB 10 MEQ/100 ML INFUS.BAG IVPB SCH ×2 (11:20→13:40)
[2022-05-20] MEDS: POTASSIUM CHLORIDE ORAL LIQUID 20 MEQ/15 ML PO SCH ×2 (11:20→15:45)
[2022-05-20] MEDS: DEXMEDETOMIDINE PREMIX 400 MCG/100 ML BAG IVPB SCH (18:33)
[2022-05-20] MEDS ORDERED: MIDAZOLAM HCL 2 MG/2 ML SINGLE DOSE VIAL IVPUSH STA (20:29)
[2022-05-20] MEDS: MONTELUKAST NA 10 MG TABLET PO SCH (21:23)
[2022-05-20] MEDS: CHLORHEXIDINE GLUCONATE 4% CLEANSER FOR DECOLONIZATION TP SCH (21:24)
[2022-05-20 22:00] LABS: EPI CELLS 4 /uL (0-25.1); HYALINE CASTS 1 /uL (0-3.1); URINE APPEARANCE CLOUDY; URINE BACTERIA 3 /uL (0-1359); URINE BILIRUBIN NEGATIVE (NEGATIVE); URINE COLOR YELLOW; URINE GLUCOSE (UA) 1+ (NEGATIVE); URINE KETONE NEGATIVE (NEGATIVE); URINE LEUK ESTERASE NEGATIVE (NEGATIVE); URINE NITRITE NEGATIVE (NEGATIVE); URINE PROTEIN TRACE (NEGATIVE); URINE UROBILINOGEN 0.2 mg/dL (0.2-1.0)
[2022-05-20] MEDS ORDERED: APIXABAN 5 MG TABLET PO SCH (22:00)
[2022-05-20 22:19] LABS: URINE RBC 455.5 /uL (0-23.9); URINE WBC 62.1 /uL (0-25.8); YEAST MODERATE (NEGATIVE)
[2022-05-21] MEDS: dilTIAZem HCL 30 MG TABLET NGT SCH ×4 (06:33→17:48)
[2022-05-21] MEDS: INSULIN (LEVEMIR) 100 UNITS/ML UNITS SQ SCH (06:33)
[2022-05-21] MEDS: INSULIN SLIDING SCALE (NOVOLOG) 1 VIAL SQ SCH ×4 (06:34→21:23)
[2022-05-21 08:25] LABS: HEMATOCRIT 32.9 % (32.4-45.2); HEMOGLOBIN 10.5 GM/dL (10.7-15.3); MCH 25.7 pg (25.7-33.7); MCHC 31.9 g/dl (32.0-36.0); MEAN CELL VOLUME 80.7 fl (80-96); MEAN PLT VOLUME 12.4 fl (7.5-11.1); PLATELET COUNT 64 10^3/uL (134-434); RBC 4.08 M/mm3 (3.60-5.2); RDW 17.7 % (11.6-15.6); WHITE BLOOD COUNT 18.2 K/mm3 (4.0-10.0)
[2022-05-21 08:51] LABS: CALCIUM 8.8 mg/dL (8.5-10.1)
[2022-05-21 08:52] LABS: ALBUMIN 2.1 g/dl (3.4-5.0); BLOOD UREA NITROGEN 94.7 mg/dL (7-18); MAGNESIUM 1.9 mg/dL (1.8-2.4)
[2022-05-21 08:55] LABS: CREATININE 1.6 mg/dL (0.55-1.3); PHOSPHOROUS 2.9 mg/dL (2.5-4.9)
[2022-05-21 08:56] LABS: TOT PROT 4.9 g/dl (6.4-8.2)
[2022-05-21 09:05] LABS: ANISOCYTOSIS 0; HELMET CELLS 0; HOWELL-JOLLY BODIES 0; MACROCYTOSIS 0; OVALOCYTE 0; ROULEAU 0; SICKELED CELLS 0; TARGET CELLS 0; TEAR DROP CELLS 0; TOXIC GRANULATION 0
[2022-05-21] MEDS: CEFTRIAXONE 2 GM in DEXTROSE 5%-WATER 100 ML IVPB SCH (10:10)
[2022-05-21] MEDS: FUROSEMIDE INJECTION 100 MG in SODIUM CHLORIDE 40 ML IVPB SCH (10:10)
[2022-05-21] MEDS: TIOTROPIUM BROMIDE 2.5 MCG (SPIRIVA) RESPIMAT INHALER IH SCH (10:11)
[2022-05-21] MEDS: PANTOPRAZOLE SODIUM 40 MG VIAL IVPUSH SCH (10:11)
[2022-05-21] MEDS: BUDESONIDE/FORMETEROL FUMARATE 160/4.5 mcg INHALER IH SCH ×2 (10:11→21:23)
[2022-05-21] MEDS ORDERED: DEXTROSE 5%-WATER - 1,000 ML IV SCH (11:00)
[2022-05-21] MEDS: KCL 10 MEQ IVPB 10 MEQ/100 ML INFUS.BAG IVPB SCH ×3 (12:08→15:29)
[2022-05-21] MEDS: DEXMEDETOMIDINE PREMIX 400 MCG/100 ML BAG IVPB SCH (15:30)
[2022-05-21] MEDS: BACITRACIN 15 GM TUBE TOPICAL OINTMENT TP SCH (15:30)
[2022-05-21] MEDS: MONTELUKAST NA 10 MG TABLET PO SCH (21:23)
[2022-05-21] MEDS: CHLORHEXIDINE GLUCONATE 4% CLEANSER FOR DECOLONIZATION TP SCH (21:23)
[2022-05-22] MEDS ORDERED: INSULIN SLIDING SCALE (NOVOLOG) 1 VIAL SQ SCH (01:01)
[2022-05-22] MEDS: dilTIAZem HCL 30 MG TABLET NGT SCH ×4 (05:59→18:40)
[2022-05-22] MEDS: INSULIN (LEVEMIR) 100 UNITS/ML UNITS SQ SCH (06:12)
[2022-05-22] MEDS: INSULIN SLIDING SCALE (NOVOLOG) 1 VIAL SQ SCH ×4 (06:12→21:52)
[2022-05-22 07:50] LABS: HEMATOCRIT 32.9 % (32.4-45.2); HEMOGLOBIN 10.6 GM/dL (10.7-15.3); MCH 26.1 pg (25.7-33.7); MCHC 32.1 g/dl (32.0-36.0); MEAN CELL VOLUME 81.3 fl (80-96); PLATELET COUNT 39 10^3/uL (134-434); RBC 4.04 M/mm3 (3.60-5.2); RDW 18.7 % (11.6-15.6); WHITE BLOOD COUNT 19.1 K/mm3 (4.0-10.0)
[2022-05-22] MEDS ORDERED: COSYNTROPIN 0.25 MG VIAL IVPUSH ONE ×2 (08:00→13:00)
[2022-05-22 08:09] LABS: ALBUMIN 1.9 g/dl (3.4-5.0); BLOOD UREA NITROGEN 82.8 mg/dL (7-18); CALCIUM 8.3 mg/dL (8.5-10.1); MAGNESIUM 1.7 mg/dL (1.8-2.4)
[2022-05-22 08:12] LABS: CREATININE 1.3 mg/dL (0.55-1.3); PHOSPHOROUS 2.5 mg/dL (2.5-4.9)
[2022-05-22 08:13] LABS: BILIRUBIN,TOTAL 0.9 mg/dL (0.2-1); TOT PROT 4.5 g/dl (6.4-8.2)
[2022-05-22] MEDS ORDERED: MAGNESIUM SULFATE IN WATER 2 GM/50 ML IVPB IVPB ONE (08:29)
[2022-05-22] MEDS ORDERED: POTASSIUM CHLORIDE ORAL LIQUID 20 MEQ/15 ML PO ONE (08:30)
[2022-05-22] MEDS: PANTOPRAZOLE SODIUM 40 MG VIAL IVPUSH SCH (09:07)
[2022-05-22] MEDS: BUDESONIDE/FORMETEROL FUMARATE 160/4.5 mcg INHALER IH SCH ×2 (09:07→21:52)
[2022-05-22] MEDS: TIOTROPIUM BROMIDE 2.5 MCG (SPIRIVA) RESPIMAT INHALER IH SCH (09:07)
[2022-05-22] MEDS: KCL 10 MEQ IVPB 10 MEQ/100 ML INFUS.BAG IVPB SCH ×3 (09:07→14:05)
[2022-05-22] MEDS ORDERED: MAGNESIUM 2GM/50ML STERILE WATER IVPB IVPB ONE (10:47)
[2022-05-22] MEDS: BACITRACIN 15 GM TUBE TOPICAL OINTMENT TP SCH (11:00)
[2022-05-22] MEDS: FUROSEMIDE 40 MG/4 ML INJECTABLE VIAL IVPUSH SCH (14:04)
[2022-05-22] MEDS: DEXMEDETOMIDINE PREMIX 400 MCG/100 ML BAG IVPB SCH (14:04)
[2022-05-22] MEDS: DEXAMETHASONE SOD PHOSPHATE 4 MG/1 ML VIAL IVPUSH SCH (21:50)
[2022-05-22] MEDS: MONTELUKAST NA 10 MG TABLET PO SCH (21:51)
[2022-05-22] MEDS: CHLORHEXIDINE GLUCONATE 4% CLEANSER FOR DECOLONIZATION TP SCH (21:51)
[2022-05-23] MEDS: dilTIAZem HCL 30 MG TABLET NGT SCH ×3 (00:10→11:52)
[2022-05-23] MEDS: DEXMEDETOMIDINE PREMIX 400 MCG/100 ML BAG IVPB SCH (01:10)
[2022-05-23] MEDS: INSULIN SLIDING SCALE (NOVOLOG) 1 VIAL SQ SCH ×4 (06:51→21:46)
[2022-05-23] MEDS: INSULIN (LEVEMIR) 100 UNITS/ML UNITS SQ SCH (07:01)
[2022-05-23 07:28] LABS: HEMATOCRIT 34.3 % (32.4-45.2); MCH 26.2 pg (25.7-33.7); MCHC 32.1 g/dl (32.0-36.0); MEAN CELL VOLUME 81.6 fl (80-96); PLATELET COUNT 79 10^3/uL (134-434); RBC 4.21 M/mm3 (3.60-5.2); RDW 19.5 % (11.6-15.6); WHITE BLOOD COUNT 16.2 K/mm3 (4.0-10.0)
[2022-05-23 07:53] LABS: ALBUMIN 1.9 g/dl (3.4-5.0); CALCIUM 8.5 mg/dL (8.5-10.1)
[2022-05-23 07:54] LABS: BLOOD UREA NITROGEN 76.8 mg/dL (7-18)
[2022-05-23 07:57] LABS: CREATININE 1.3 mg/dL (0.55-1.3); PHOSPHOROUS 3.3 mg/dL (2.5-4.9)
[2022-05-23 07:58] LABS: BILIRUBIN,TOTAL 1.1 mg/dL (0.2-1); TOT PROT 4.7 g/dl (6.4-8.2)
[2022-05-23] MEDS ORDERED: dilTIAZem HCL 50 MG/10 ML - 10 ML VIAL IVPUSH ONE ×4 (10:06→11:44)
[2022-05-23] MEDS: DEXAMETHASONE SOD PHOSPHATE 4 MG/1 ML VIAL IVPUSH SCH ×2 (10:08→21:45)
[2022-05-23] MEDS: PANTOPRAZOLE SODIUM 40 MG VIAL IVPUSH SCH (10:08)
[2022-05-23] MEDS: BUDESONIDE/FORMETEROL FUMARATE 160/4.5 mcg INHALER IH SCH ×2 (10:10→21:46)
[2022-05-23] MEDS: TIOTROPIUM BROMIDE 2.5 MCG (SPIRIVA) RESPIMAT INHALER IH SCH (10:10)
[2022-05-23] MEDS: BACITRACIN 15 GM TUBE TOPICAL OINTMENT TP SCH (10:10)
[2022-05-23] MEDS ORDERED: dilTIAZem HCL 50 MG/10 ML - 10 ML VIAL IVPUSH PRN (11:14)
[2022-05-23] MEDS: FUROSEMIDE 40 MG/4 ML INJECTABLE VIAL IVPUSH SCH (13:10)
[2022-05-23] MEDS ORDERED: LEVALBUTEROL HCL 0.63 MG/3 ML VIAL.NEB. IH ONE (13:58)
[2022-05-23] MEDS: MONTELUKAST NA 10 MG TABLET PO SCH (21:07)
[2022-05-23] MEDS: CHLORHEXIDINE GLUCONATE 4% CLEANSER FOR DECOLONIZATION TP SCH (21:45)
[2022-05-24] MEDS: DEXMEDETOMIDINE PREMIX 400 MCG/100 ML BAG IVPB SCH (04:28)
[2022-05-24] MEDS: INSULIN SLIDING SCALE (NOVOLOG) 1 VIAL SQ SCH ×4 (06:26→22:04)
[2022-05-24] MEDS: FUROSEMIDE 40 MG/4 ML INJECTABLE VIAL IVPUSH SCH ×2 (06:30→13:35)
[2022-05-24] MEDS: INSULIN (LEVEMIR) 100 UNITS/ML UNITS SQ SCH (06:30)
[2022-05-24 08:14] LABS: ALBUMIN 2.2 g/dl (3.4-5.0); BLOOD UREA NITROGEN 81.4 mg/dL (7-18); CALCIUM 9.4 mg/dL (8.5-10.1)
[2022-05-24 08:17] LABS: PHOSPHOROUS 4.2 mg/dL (2.5-4.9)
[2022-05-24 08:18] LABS: CREATININE 1.3 mg/dL (0.55-1.3)
[2022-05-24 08:19] LABS: BILIRUBIN,TOTAL 1.3 mg/dL (0.2-1); TOT PROT 5.2 g/dl (6.4-8.2)
[2022-05-24 09:15] LABS: HEMATOCRIT 35.5 % (32.4-45.2); HEMOGLOBIN 11.1 GM/dL (10.7-15.3); MCH 25.7 pg (25.7-33.7); MCHC 31.2 g/dl (32.0-36.0); MEAN CELL VOLUME 82.4 fl (80-96); MEAN PLT VOLUME 12.7 fl (7.5-11.1); PLATELET COUNT 86 10^3/uL (134-434); RBC 4.31 M/mm3 (3.60-5.2); RDW 20.4 % (11.6-15.6); WHITE BLOOD COUNT 21.2 K/mm3 (4.0-10.0)
[2022-05-24] MEDS: PANTOPRAZOLE SODIUM 40 MG VIAL IVPUSH SCH (09:55)
[2022-05-24] MEDS: DEXAMETHASONE SOD PHOSPHATE 4 MG/1 ML VIAL IVPUSH SCH ×2 (09:55→22:01)
[2022-05-24] MEDS: BACITRACIN 15 GM TUBE TOPICAL OINTMENT TP SCH (09:57)
[2022-05-24] MEDS: TIOTROPIUM BROMIDE 2.5 MCG (SPIRIVA) RESPIMAT INHALER IH SCH (12:12)
[2022-05-24] MEDS: BUDESONIDE/FORMETEROL FUMARATE 160/4.5 mcg INHALER IH SCH ×2 (12:12→22:08)
[2022-05-24] MEDS: AMINO ACIDS 4.25%/D5W 1,000 ML IV SCH (17:28)
[2022-05-24] MEDS: CHLORHEXIDINE GLUCONATE 4% CLEANSER FOR DECOLONIZATION TP SCH (22:01)
[2022-05-24] MEDS: MONTELUKAST NA 10 MG TABLET PO SCH (22:01)
[2022-05-25] MEDS: FUROSEMIDE 40 MG/4 ML INJECTABLE VIAL IVPUSH SCH ×2 (06:06→13:41)
[2022-05-25] MEDS: INSULIN SLIDING SCALE (NOVOLOG) 1 VIAL SQ SCH ×4 (06:06→21:59)
[2022-05-25] MEDS: INSULIN (LEVEMIR) 100 UNITS/ML UNITS SQ SCH (06:07)
[2022-05-25 07:42] LABS: CALCIUM 9.5 mg/dL (8.5-10.1)
[2022-05-25 07:43] LABS: ALBUMIN 2.5 g/dl (3.4-5.0); BLOOD UREA NITROGEN 82.4 mg/dL (7-18); MAGNESIUM 1.9 mg/dL (1.8-2.4)
[2022-05-25 07:46] LABS: CREATININE 1.3 mg/dL (0.55-1.3); PHOSPHOROUS 3.7 mg/dL (2.5-4.9)
[2022-05-25 07:47] LABS: BILIRUBIN,TOTAL 1.1 mg/dL (0.2-1); TOT PROT 5.9 g/dl (6.4-8.2)
[2022-05-25 08:04] LABS: HEMATOCRIT 38.3 % (32.4-45.2); HEMOGLOBIN 11.7 GM/dL (10.7-15.3); MCH 25.6 pg (25.7-33.7); MCHC 30.7 g/dl (32.0-36.0); MEAN CELL VOLUME 83.4 fl (80-96); MEAN PLT VOLUME 15.4 fl (7.5-11.1); PLATELET COUNT 106 10^3/uL (134-434); RBC 4.59 M/mm3 (3.60-5.2); WHITE BLOOD COUNT 17.8 K/mm3 (4.0-10.0)
[2022-05-25] MEDS: PANTOPRAZOLE SODIUM 40 MG VIAL IVPUSH SCH (09:44)
[2022-05-25] MEDS: BUDESONIDE/FORMETEROL FUMARATE 160/4.5 mcg INHALER IH SCH (09:45)
[2022-05-25] MEDS: TIOTROPIUM BROMIDE 2.5 MCG (SPIRIVA) RESPIMAT INHALER IH SCH (09:45)
[2022-05-25] MEDS: DEXAMETHASONE SOD PHOSPHATE 4 MG/1 ML VIAL IVPUSH SCH (09:47)
[2022-05-25] MEDS: BACITRACIN 15 GM TUBE TOPICAL OINTMENT TP SCH (11:38)
[2022-05-25] MEDS: AMINO ACIDS 4.25%/D5W 1,000 ML IV SCH (17:00)
[2022-05-25] MEDS: CHLORHEXIDINE GLUCONATE 4% CLEANSER FOR DECOLONIZATION TP SCH (22:00)
[2022-05-25] MEDS: MONTELUKAST NA 10 MG TABLET PO SCH (22:08)
[2022-05-26] MEDS: BUDESONIDE/FORMETEROL FUMARATE 160/4.5 mcg INHALER IH SCH ×3 (00:30→21:30)
[2022-05-26] MEDS: FUROSEMIDE 40 MG/4 ML INJECTABLE VIAL IVPUSH SCH ×2 (06:05→14:33)
[2022-05-26] MEDS: INSULIN (LEVEMIR) 100 UNITS/ML UNITS SQ SCH (07:21)
[2022-05-26] MEDS: INSULIN SLIDING SCALE (NOVOLOG) 1 VIAL SQ SCH ×4 (07:21→21:27)
[2022-05-26 07:59] LABS: HEMOGLOBIN 11.6 GM/dL (10.7-15.3); MCH 26.2 pg (25.7-33.7); MCHC 31.3 g/dl (32.0-36.0); MEAN CELL VOLUME 83.7 fl (80-96); MEAN PLT VOLUME 12.5 fl (7.5-11.1); PLATELET COUNT 79 10^3/uL (134-434); RBC 4.42 M/mm3 (3.60-5.2); WHITE BLOOD COUNT 15.2 K/mm3 (4.0-10.0)
[2022-05-26 08:12] LABS: BLOOD UREA NITROGEN 71.6 mg/dL (7-18); CALCIUM 9.3 mg/dL (8.5-10.1); MAGNESIUM 1.7 mg/dL (1.8-2.4)
[2022-05-26 08:13] LABS: ALBUMIN 2.6 g/dl (3.4-5.0)
[2022-05-26 08:15] LABS: CREATININE 1.2 mg/dL (0.55-1.3); PHOSPHOROUS 3.8 mg/dL (2.5-4.9)
[2022-05-26 08:17] LABS: BILIRUBIN,TOTAL 1.2 mg/dL (0.2-1); TOT PROT 5.8 g/dl (6.4-8.2)
[2022-05-26] MEDS: PANTOPRAZOLE SODIUM 40 MG VIAL IVPUSH SCH (09:38)
[2022-05-26] MEDS: BACITRACIN 15 GM TUBE TOPICAL OINTMENT TP SCH (09:43)
[2022-05-26] MEDS: APIXABAN 5 MG TABLET PO SCH ×2 (09:44→21:29)
[2022-05-26] MEDS ORDERED: DEXAMETHASONE SOD PHOSPHATE 4 MG/1 ML VIAL IVPUSH SCH (10:00)
[2022-05-26] MEDS: TIOTROPIUM BROMIDE 2.5 MCG (SPIRIVA) RESPIMAT INHALER IH SCH (12:37)
[2022-05-26] MEDS ORDERED: MAGNESIUM 2GM/50ML STERILE WATER IVPB IVPB STA (14:55)
[2022-05-26] MEDS: AMINO ACIDS 4.25%/D5W 1,000 ML IV SCH (16:42)
[2022-05-26] MEDS: CHLORHEXIDINE GLUCONATE 4% CLEANSER FOR DECOLONIZATION TP SCH (21:28)
[2022-05-26] MEDS: MONTELUKAST NA 10 MG TABLET PO SCH (21:29)
[2022-05-27] MEDS: FUROSEMIDE 40 MG/4 ML INJECTABLE VIAL IVPUSH SCH (06:51)
[2022-05-27] MEDS: INSULIN (LEVEMIR) 100 UNITS/ML UNITS SQ SCH (06:57)
[2022-05-27] MEDS: INSULIN SLIDING SCALE (NOVOLOG) 1 VIAL SQ SCH ×2 (06:57→11:57)
[2022-05-27] MEDS ORDERED: DEXAMETHASONE SOD PHOSPHATE 10 MG/1 ML VIAL IVPUSH ONE (07:25)
[2022-05-27] MEDS ORDERED: morphine SULFATE 4 MG/ML VIAL IVPUSH ONE (07:25)
[2022-05-27] MEDS ORDERED: POTASSIUM CHLORIDE ORAL LIQUID 20 MEQ/15 ML PO ONE (07:30)
[2022-05-27 07:33] LABS: ALBUMIN 2.4 g/dl (3.4-5.0); BLOOD UREA NITROGEN 63.4 mg/dL (7-18); CALCIUM 9.1 mg/dL (8.5-10.1)
[2022-05-27 07:37] LABS: CREATININE 0.9 mg/dL (0.55-1.3); TOT PROT 5.3 g/dl (6.4-8.2)
[2022-05-27 07:42] LABS: HEMATOCRIT 36.9 % (32.4-45.2); HEMOGLOBIN 11.5 GM/dL (10.7-15.3); MCH 26.2 pg (25.7-33.7); MCHC 31.3 g/dl (32.0-36.0); MEAN CELL VOLUME 83.8 fl (80-96); MEAN PLT VOLUME 15.3 fl (7.5-11.1); PLATELET COUNT 85 10^3/uL (134-434); RDW 21.7 % (11.6-15.6); WHITE BLOOD COUNT 4.8 K/mm3 (4.0-10.0)
[2022-05-27] MEDS ORDERED: DEXMEDETOMIDINE PREMIX 400 MCG/100 ML BAG IVPB SCH (07:45)
[2022-05-27 08:13] LABS: ARTERIAL BLD GAS O2 SATURATION 78.3 % (95-98); ARTERIAL BLOOD GAS PO2 44.7 mmHg (80-100)
[2022-05-27] MEDS ORDERED: ALBUTEROL SO4 2.5/IPRATROPIUM 0.5 INH SOL 3 ML VIAL.NEB. NEB ONE (08:24)
[2022-05-27 08:29] LABS: ALLENS TEST POSITIVE
[2022-05-27 08:30] LABS: VENT MODE PSV; VENT RATE 16
[2022-05-27 08:50] LABS: BILIRUBIN,TOTAL 1.3 mg/dL (0.2-1)
[2022-05-27] MEDS ORDERED: POTASSIUM PHOSPHATE IVPB ONE (09:00)
[2022-05-27] MEDS ORDERED: SODIUM CHLORIDE IVPB ONE (09:00)
[2022-05-27] MEDS: PANTOPRAZOLE SODIUM 40 MG VIAL IVPUSH SCH (09:37)
[2022-05-27] MEDS: BACITRACIN 15 GM TUBE TOPICAL OINTMENT TP SCH (09:56)
[2022-05-27] MEDS ORDERED: VANCOMYCIN/WATER FOR INJ (PEG) 1,000 MG/200 ML BAG IVPB ONE (10:14)
[2022-05-27] MEDS ORDERED: CEFEPIME 2 GM in DEXTROSE 5%-WATER 100 ML IVPB SCH (10:15)
[2022-05-27 11:18] VITALS: RESP 24
[2022-05-27] MEDS: ALBUTEROL SO4 2.5/IPRATROPIUM 0.5 INH SOL 3 ML VIAL.NEB. NEB SCH ×3 (11:44→20:22)
[2022-05-27] MEDS ORDERED: POTASSIUM CHLORIDE 20 MEQ in AMINO ACIDS 4.25%/D5W 1,000 ML IV SCH (13:46)
[2022-05-27 14:34] VITALS: BP 97/49; TEMP 98.7
[2022-05-27] MEDS ORDERED: MORPHINE SULFATE/0.9% NACL/PF 100 MG/100 ML BAG IVPB SCH (16:30)
[2022-05-27] MEDS ORDERED: LORazepam 2 MG/ML SDV VIAL IVPUSH PRN (17:26)
[2022-05-27] MEDS: BUDESONIDE/FORMETEROL FUMARATE 160/4.5 mcg INHALER IH SCH (18:50)
[2022-05-27] MEDS: TIOTROPIUM BROMIDE 2.5 MCG (SPIRIVA) RESPIMAT INHALER IH SCH (18:50)
[2022-05-27 20:35] VITALS: PULSE 114
[2022-05-27] MEDS: CHLORHEXIDINE GLUCONATE 4% CLEANSER FOR DECOLONIZATION TP SCH (21:41)
[2022-05-28] MEDS ORDERED: DEXAMETHASONE SOD PHOSPHATE 4 MG/1 ML VIAL IVPUSH SCH ×2 (10:00)
== END 2022-05-28 01:05 | disposition expired | DRG 637 ==
LOC: JER 10:27 → JERBED 17:07 → J5S 23:00 → J4W 05-01 14:33 → OBSVTOIN 05-03 14:23 → J7W 05-06 10:58 → JICU 05-12 09:59
PROVIDERS: ADMIT Internal Medicine; ATTEND Internal Medicine
PROC: 5A1955Z Respiratory Ventilation, Greater than 96 Consecutive Hours (ICD-10-PCS; principal; 2022-05-12)
PROC: 0BH17EZ Insertion of Endotracheal Airway into Trachea, Via Natural or Artificial Opening (ICD-10-PCS; 2022-05-12)
PROC: 05HM33Z Insertion of Infusion Device into Right Internal Jugular Vein, Percutaneous Approach (ICD-10-PCS; 2022-05-12)
PROC: B543ZZA Ultrasonography of Right Jugular Veins, Guidance (ICD-10-PCS; 2022-05-12)
PROC: 4A133B1 Monitoring of Arterial Pressure, Peripheral, Percutaneous Approach (ICD-10-PCS; 2022-05-12)
PROC: 4A133J1 Monitoring of Arterial Pulse, Peripheral, Percutaneous Approach (ICD-10-PCS; 2022-05-12)
PROC: 30233N1 Transfusion of Nonautologous Red Blood Cells into Peripheral Vein, Percutaneous Approach (ICD-10-PCS; 2022-05-19)
PROC: 05HB33Z Insertion of Infusion Device into Right Basilic Vein, Percutaneous Approach (ICD-10-PCS; 2022-05-20)
DX: E11.649 Type 2 diabetes mellitus with hypoglycemia without coma (principal); A41.89 Other specified sepsis; G93.41 Metabolic encephalopathy; K72.00 Acute and subacute hepatic failure without coma; J15.0 Pneumonia due to Klebsiella pneumoniae; R65.21 Severe sepsis with septic shock; I13.0 Hypertensive heart and chronic kidney disease with heart failure and stage 1 through stage 4 chronic kidney disease, or unspecified chronic kidney disease; I50.32 Chronic diastolic (congestive) heart failure; K56.7 Ileus, unspecified; E87.20 Acidosis, unspecified; E27.40 Unspecified adrenocortical insufficiency; B37.0 Candidal stomatitis; E44.0 Moderate protein-calorie malnutrition; E87.0 Hyperosmolality and hypernatremia; E03.9 Hypothyroidism, unspecified; I25.10 Atherosclerotic heart disease of native coronary artery without angina pectoris; I48.91 Unspecified atrial fibrillation; E87.6 Hypokalemia; D86.0 Sarcoidosis of lung; R41.82 Altered mental status, unspecified; R68.0 Hypothermia, not associated with low environmental temperature; N17.9 Acute kidney failure, unspecified; E78.5 Hyperlipidemia, unspecified; R62.7 Adult failure to thrive; E83.52 Hypercalcemia; Z68.22 Body mass index [BMI] 22.0-22.9, adult; E11.9 Type 2 diabetes mellitus without complications; D64.9 Anemia, unspecified; E11.22 Type 2 diabetes mellitus with diabetic chronic kidney disease; E83.41 Hypermagnesemia; E83.39 Other disorders of phosphorus metabolism; N18.9 Chronic kidney disease, unspecified; R74.8 Abnormal levels of other serum enzymes; I07.1 Rheumatic tricuspid insufficiency; D69.6 Thrombocytopenia, unspecified; I27.20 Pulmonary hypertension, unspecified; R79.89 Other specified abnormal findings of blood chemistry; I46.9 Cardiac arrest, cause unspecified; Z95.5 Presence of coronary angioplasty implant and graft; Z88.0 Allergy status to penicillin; Z66 Do not resuscitate
CPT/HCPCS: 31500; 36415; 36430; 36600; 71045-TC-FY; 71250-TC; 74018-TC-FY; 76705-TC; 76775-TC; 80048; 80053; 80307; 81003; 82024; 82105; 82140; 82150; 82248; 82272; 82436; 82533; 82550; 82553; 82570; 82803; 82962; 82977; 83520; 83540; 83550; 83605; 83690; 83735; 84100; 84133; 84300; 84436; 84443; 84484; 84540; 85025; 85027; 85384; 85610; 85730; 86022; 86038; 86256; 86480; 86705; 86803; 86850; 86900; 86901; 86922; 87040; 87070; 87077; 87086; 87116; 87186; 87205; 87206; 87340; 87517; 87804; 87899; 93005; 93010; 93306-TC; 94002; 94640; 94660; 97116-GP; 97161-GP; 99291; C9803-CS; G0378; G0480; J0834; J1100; J3490; P9058; U0003; U0005